=== PATIENT | female | born 1970 | race Caucasian/White ===

== ENCOUNTER → 2016-12-14 | Outpatient (CLI) | payer BC ==
--- NOTE | 2016-12-17 11:48 | MM ---
Reason for exam: screening (asymptomatic). Last mammogram was performed 1 year and 1 month ago. History: Family history of breast cancer in aunt at age 55. Took hormonal contraceptives for 6 years. Physical Findings: A clinical breast exam by your physician is recommended on an annual basis and results should be correlated with mammographic findings. MG Screening Mammo w CAD Bilateral CC and MLO view(s) were taken. Prior study comparison: November 03, 2015, bilateral MG 3d screening mammo w/cad. October 25, 2014, bilateral MG screening mammo w CAD. The breast tissue is heterogeneously dense. This may lower the sensitivity of mammography. There is no discrete abnormality. No significant changes when compared with prior studies. ASSESSMENT: Negative, BI-RAD 1 RECOMMENDATION: Routine screening mammogram of both breasts in 1 year.
== END | disposition home or self-care (01) ==
LOC: RADMAMWWP 07:48
PROVIDERS: ATTEND Obstetrics & Gynecology
DX: Z12.31 Encounter for screening mammogram for malignant neoplasm of breast (principal); Z80.3 Family history of malignant neoplasm of breast

== ENCOUNTER → 2018-01-10 | Outpatient (CLI) | payer BC ==
--- NOTE | 2018-01-13 09:38 | MM ---
Reason for exam: screening (asymptomatic). Last mammogram was performed 1 year and 1 month ago. History: Family history of breast cancer in aunt at age 55. Took hormonal contraceptives for 6 years. Physical Findings: A clinical breast exam by your physician is recommended on an annual basis and results should be correlated with mammographic findings. MG Screening Mammo w CAD Bilateral CC and MLO view(s) were taken. Prior study comparison: December 14, 2016, bilateral MG screening mammo w CAD. November 03, 2015, bilateral MG 3d screening mammo w/cad. The breast tissue is heterogeneously dense. This may lower the sensitivity of mammography. There is no discrete abnormality. No significant changes when compared with prior studies. ASSESSMENT: Negative, BI-RAD 1 RECOMMENDATION: Routine screening mammogram of both breasts in 1 year.
== END ==
LOC: RADMAMWWP 07:49
PROVIDERS: ATTEND Obstetrics & Gynecology
DX: Z12.31 Encounter for screening mammogram for malignant neoplasm of breast (principal); Z80.3 Family history of malignant neoplasm of breast
CPT/HCPCS: 77067

== ENCOUNTER → 2018-02-22 | Outpatient (CLI) | payer BC ==
[2018-02-22 10:45] LABS: Basophils # (A) 0.1 k/uL (0-0.2); Basophils % (A) 1 %; Eosinophils # (A) 0.1 k/uL (0-0.7); Eosinophils % (A) 2 %; HCT 43.7 % (34.0-46.0); HGB 14.5 gm/dL (11.4-16.0); Lymphocytes # (A) 1.8 k/uL (1.0-4.8); Lymphocytes % (A) 27 %; MCH 32.8 pg (25.0-35.0); MCHC 33.1 g/dL (31.0-37.0); Mean Platelet Volume 6.4; Monocytes # (A) 0.5 k/uL (0-1.0); Monocytes % (A) 7 %; Neutrophils # (A) 4.2 k/uL (1.3-7.7); Neutrophils % (A) 63 %; Platelet Count 317 k/uL (150-450); RBC 4.42 m/uL (3.80-5.40); RDW 12.4 % (11.5-15.5); WBC 6.8 k/uL (3.8-10.6)
[2018-02-22 11:04] LABS: Anion Gap 8 mmol/L; Blood Urea Nitrogen 22 mg/dL (7-17); Carbon Dioxide 28 mmol/L (22-30); Chloride 104 mmol/L (98-107); Glucose 82 mg/dL (74-99); Potassium 5.2 mmol/L (3.5-5.1); Sodium 140 mmol/L (137-145)
== END | disposition home or self-care (01) ==
LOC: LABPAT 10:21
PROVIDERS: ATTEND Obstetrics & Gynecology
DX: Z01.812 Encounter for preprocedural laboratory examination (principal); N92.0 Excessive and frequent menstruation with regular cycle; N94.6 Dysmenorrhea, unspecified
CPT/HCPCS: 36415; 80051; 82565; 82947; 84520; 85025; 86850; 86900; 86901; 87086

== ENCOUNTER 2018-03-03 05:42 | Day surgery (SDC) | payer BC ==
[2018-02-26 11:27] VITALS: BMI 22.6
--- NOTE | 2018-02-27 15:39 | HP ---
HISTORY AND PHYSICAL This is a 47-year-old white female, 3, para 2-0-1-2, who presents with menses occurring every 21 days. Her partner has had a vasectomy. She has been counseled regarding different options. She has used cyclic progesterone in the past in an attempt to regulate the menses, but had severe gastrointestinal upset and is declining option for cyclic hormonal therapy. After a thorough discussion, patient would like to proceed with vaginal hysterectomy. Consideration has been given to robotic assistance, but in my judgment with 2 vaginal deliveries in the past and reasonable body habitus, vaginal hysterectomy is a good approach. Second opinion has been offered and declined. PAST MEDICAL HISTORY: Significant for depression, septate uterus, and duodenal ulcers. PAST SURGICAL HISTORY: Carpal tunnel release times x2, cholecystectomy, colposcopy, NovaSure endometrial ablation in 2007, tonsillectomy. CURRENT MEDICATIONS: 1. Loratadine once daily. 2. Micronized progesterone tablets, cyclically. 3. Singulair once daily. 4. Wellbutrin XL once daily. ALLERGIES: Include CODEINE to which she reports vomiting. FAMILY HISTORY: Significant for brain cancer, breast cancer, diabetes, diverticulitis, heart disease, macular degeneration, stomach cancer and a grandmother with ovarian cancer. Obstetric history is significant for normal spontaneous vaginal deliveries x2 in 2004 and 2007. SOCIAL HISTORY: Patient drinks social alcohol, she is a former tobacco smoker. She denies illicit drug use. PHYSICAL EXAM: This is a pleasant female, 5 foot 4-1/2 inches, 145 pounds, BMI 24, blood pressure 110/76. HEENT exam reveals no thyromegaly. Good range of motion. No unusual adenopathy. CHEST: Clear to auscultation in all ahn anteriorly and posteriorly. CARDIAC EXAM: Reveals regular rate and rhythm with no murmur, click, or rub. Breasts are bilaterally symmetric to inspection with no skin dimpling, nipple discharge, axillary adenopathy or discernible lesions or masses. ABDOMEN: Soft and nontender, no organosplenomegaly, active bowel sounds are noted. On external genitalia exam, the anatomy is normal for age with no discharge or inflammatory lesions noted. Bladder is nontender. Cervix is healthy and multiparous in appearance. Uterus is small and mobile, midline, with a small amount of uterine prolapse with Valsalva. Adnexa are negative bilaterally, no adnexal masses or enlargement. Rectal exam reveals good sphincter tone, no hemorrhoids, FIT negative stool. Skin is clear to inspection with no obvious lesions or rashes. IMPRESSION: Continued dysmenorrhea and hypermenorrhea, status post ablation in the past. Patient declining option for repeat cyclic hormones and instead choosing vaginal hysterectomy. PLAN: I believe patient is well aware of the risks, benefits, and alternatives of this procedure. We have discussed the risk of aspiration, nerve damage, or even . We have discussed the risk of damage or perforation to the bladder, bowels, ureters, blood vessels, or indeed any abdominal or pelvic organs. Second opinion has been offered and declined. I believe the patient understands our discussion with no reservation or question. The ACOG pamphlet on this procedure have been given to the patient for her review. MMODL / IJN: [id number] /
[~2018-03-03 05:42] MED LIST: ceFAZolin IN SWFI 2 GM/20 ML SYRINGE IVP ONE
[2018-03-03] MEDS ORDERED: DEXAMETHASONE SOD PHOSPHATE 10 MG/ML 1 ML VIAL IV ONE (05:54)
[2018-03-03] MEDS ORDERED: MIDAZOLAM (PF) 2 MG/2 ML VIAL IV PRN (05:54)
[2018-03-03] MEDS ORDERED: SCOPOLAMINE 1.5MG/72HR PATCH TRANSDERM ONE (05:54)
[2018-03-03] MEDS ORDERED: fentaNYL (PF) 50 MCG/ML 2 ML AMP IV PRN (05:54)
[2018-03-03] MEDS ORDERED: ONDANSETRON 4 MG/2 ML VIAL IVP ONE (05:54)
[2018-03-03] MEDS: LACTATED RINGERS 1,000 ML IV SCH ×3 (06:25→23:54)
[2018-03-03] MEDS ORDERED: LIDOCAINE 1% 20 ML VIAL (10MG/ML) FOR IV START INTRADERMA ONE (06:26)
[2018-03-03] MEDS ORDERED: MIDAZOLAM 2 MG/2 ML VIAL ONE (07:25)
[2018-03-03] MEDS ORDERED: SUCCINYLCHOLINE CHLORIDE 100 MG/5 ML SYR IV ONE (07:25)
[2018-03-03] MEDS ORDERED: ACETAMINOPHEN IV (For NPO) 1,000 MG/100 ML VIAL ONE (07:25)
[2018-03-03] MEDS ORDERED: PROPOFOL 10 MG/ML 20 ML VIAL IV ONE (07:25)
[2018-03-03] MEDS ORDERED: fentaNYL (PF) 50 MCG/ML 2 ML AMP ONE (07:25)
[2018-03-03] MEDS ORDERED: NEOSTIGMINE 1 MG/ML 10 ML VIAL ONE (07:25)
[2018-03-03] MEDS ORDERED: GLYCOPYRROLATE 0.2 MG/ML 2 ML VIAL ONE (07:25)
[2018-03-03] MEDS ORDERED: ROCURONIUM BROMIDE 10 MG/ML 10 ML VIAL IV ONE (07:25)
[2018-03-03] MEDS ORDERED: LIDOCAINE 1% INJ 10MG/ML (20 ML MDV) ONE (07:25)
[2018-03-03] MEDS ORDERED: VASOPRESSIN 20 UNIT/ML 1 ML VIAL SQ ONE (07:49)
[2018-03-03] MEDS ORDERED: BACITRACIN 500 UNIT/GM OINT 28.4 GM TUBE TOPICAL ONE (07:58)
[2018-03-03] MEDS ORDERED: LACTATED RINGERS 1,000 ML IV ONE (08:23)
[2018-03-03] MEDS ORDERED: IBUPROFEN 600 MG TAB PO PRN (08:36)
[2018-03-03] MEDS ORDERED: METOCLOPRAMIDE 5 MG/ML 2 ML VIAL IVP PRN (08:36)
[2018-03-03] MEDS ORDERED: diphenhydrAMINE 50 MG/ML 1 ML VIAL IVP PRN (08:36)
[2018-03-03] MEDS ORDERED: SIMETHICONE 80 MG CHEWABLE PO PRN (08:36)
[2018-03-03] MEDS ORDERED: KETOROLAC 30 MG/ML 1 ML VIAL IVP PRN (08:36)
[2018-03-03] MEDS ORDERED: ZOLPIDEM 5 MG TAB PO PRN (08:36)
[2018-03-03] MEDS ORDERED: ONDANSETRON 4 MG/2 ML VIAL IVP PRN (08:36)
--- NOTE | 2018-03-03 08:36 | P.OP ---
Date of Procedure: 03/03/18 Preoperative Diagnosis: Dysmenorrhea, hypermenorrhea Postoperative Diagnosis: Same, normal-appearing ovaries bilaterally Procedure(s) Performed: Vaginal hysterectomy Anesthesia: spinal Contact Centre Supervisor #1: Elaine Raymond Contact Centre Supervisor #2: Shonna Kerr Estimated Blood Loss (ml): 50 IV fluids (ml): 600 Urine output (ml): 100 Pathology: other (Cervix and uterus) Condition: stable Disposition: PACU Operative Findings: Normal-appearing ovaries bilaterally Description of Procedure: Patient is brought to the operating suite where a general anesthetic is administered after the placement of a spinal with Duramorph. Antibiotics are given. The appropriate timeout is performed to assure proper patient and procedural identification. She's placed in the dorsal lithotomy position. The cervix, vagina, perineal bodies are all prepped and draped in the usual sterile fashion. The bladder is drained for approximately 100 mL of clear yellow urine. The weighted speculum was placed into the vagina and the anterior lip of the cervix is grasped with a double-tooth tenaculum. The cervix is injected circumferentially with a dilute Pitressin solution, 20 mL total. A scalpel is used to incise the mucosa circumferentially with a V positioning at 6:00. A sponge rolled finger is used to sweep the overlying mucosa from the underlying fascial plane. Peritoneum is entered at 6:00 and suture tied with 2-0 Vicryl suture. The large billed speculum is now placed into the peritoneal cavity. At all times care is taken to keep the mucosa swept well from the operative field to avoid any bladder and/or ureteral injury. Uterosacral cardinal ligaments are identified, clamped cut and held with a hemostat. Uterine vasculature is identified, clamped cut and suture ligated. 2 additional pedicles are taken superior to the vessels. Peritoneum is entered at 6:00 with Metzenbaum scissors. The uterus is "walked out" posteriorly. Ramirez clamps are used across the final pedicles and the specimen is removed and sent to pathology for evaluation. 0 Vicryl sutures used to tie the pedicles, flashed, and retied for excellent hemostasis. A sponge stick is then used and bilateral ovaries are in inspected and noted to be normal. They are therefore left in situ per patient's wishes. The speculum is changed to the shallow billed speculum and the peritoneum is closed in a pursestring fashion. All pedicles are clean and dry. The previously placed 0 Vicryl suture on the uterosacral ligaments are brought across to incorporate the opposite ligament and mucosa. Vaginal cuff is closed with 3 additional [id number]-je-xebxa sutures of 0 Vicryl. Roa catheter is placed and urine is clear. The vagina is packed with one-inch iodophor gauze. All sponge needle and enhancement counts are correct at the end of the procedure. Roa is noted to be draining clear urine. Total estimated blood loss 50 mL, fluid replacement 600cc. patient is brought back to the recovery room in stable condition with a blood pressure of 94/49, pulse 55, 99% O2 saturation.
[2018-03-03] MEDS ORDERED: MORPHINE SULFATE 2 MG/ML SYRINGE IVP PRN (09:11)
[2018-03-03] MEDS ORDERED: NALOXONE 0.4 MG/ML 1 ML VIAL IV PRN (09:11)
[2018-03-03] MEDS ORDERED: NALBUPHINE 10 MG/ML VIAL (10ML MDV) IV PRN (09:11)
[2018-03-03] MEDS ORDERED: diphenhydrAMINE 50 MG/ML 1 ML VIAL IVP ONE (09:15)
[2018-03-04 07:47] VITALS: BP 94/61; PULSE 56; TEMP 99.2
--- NOTE | 2018-03-04 07:47 | P.DS ---
Providers Date of admission: 03/03/18 Expected date of discharge: 03/04/18 Attending physician: Elaine Raymond Primary care physician: [facility] Course: This is a 47-year-old white female who presented with continued dysmenorrhea and hypermenorrhea, despite NovaSure endometrial ablation done several years ago. After thorough consultation and consideration of options, she elected to proceed with vaginal hysterectomy. She was a low risk patient for surgery, please see my history and physical for details. Patient underwent vaginal hysterectomy under my care yesterday. She did well intraoperatively, ovaries appeared normal and were left in situ per her wishes. Vagina was packed with iodoform gauze, Roa catheter placed. She did receive a spinal with Duramorph for analgesia. Please see my dictated operative note for details. This morning the patient appears well. Vaginal packing and Roa catheter had been removed. She is voiding, ambulating, and passing flatus without difficulty. She had mild nausea through the evening, results this morning. She has good pain control. There is no vaginal bleeding. No CVA tenderness. Patient is requesting discharge home and is considered to be in very good condition for discharge. She will follow-up with me in the office in 2 weeks. I have reminded her no intercourse, tampons or douching. She will use [id number] Advil or Aleve , or Motrin products as needed for pain. I reminded her no heavy lifting, no working out at the gym, she may climb stairs and do minimal activities at home. She will call with any pain not alleviated by [id number] products, with any vaginal bleeding, with any difficulties with bladder or bowel, or indeed with any concerns. Patient Condition at Discharge: Good Plan - Discharge Summary Discharge Rx Participant: Yes New Discharge Prescriptions: No Action Loratadine-Pseudoeph 10-240 mg [Claritin-D 24 Hr] 1 each PO DAILY Wellbutrin (Unknown Dose) 1 tab PO QAM Discharge Medication List Loratadine-Pseudoeph 10-240 mg [Claritin-D 24 Hr] 1 each PO DAILY 02/26/18 [ History] Wellbutrin (Unknown Dose) 1 tab PO QAM 02/26/18 [History] Follow up Appointment(s)/Referral(s): Elaine Raymond MD [STAFF PHYSICIAN] - 2 Weeks Discharge Disposition: HOME SELF-CARE
[2018-03-04 09:53] VITALS: RESP 18
== END 2018-03-04 11:55 | disposition home or self-care (01) ==
LOC: OR 05:42 → 4FBP 08:44 → OR 03-04 11:55
PROVIDERS: ATTEND Obstetrics & Gynecology
DX: D25.2 Subserosal leiomyoma of uterus (principal); N80.0 Endometriosis of uterus; N94.6 Dysmenorrhea, unspecified; F32.9 Major depressive disorder, single episode, unspecified; Z79.899 Other long term (current) drug therapy; Z88.5 Allergy status to narcotic agent; Z87.891 Personal history of nicotine dependence; Z90.49 Acquired absence of other specified parts of digestive tract; Z83.3 Family history of diabetes mellitus; Z79.890 Hormone replacement therapy
CPT/HCPCS: 81025; 84132; 88307; 58260; J2250 ×2; J1200; J1100; J2710; J2405; J2001; J3010; J1885; J0131; J0330; J2704; J0690; 86850; 86900; 86901

== ENCOUNTER 2018-03-06 16:59 | Inpatient (IN) | payer BC ==
[2018-03-06] MEDS ORDERED: MORPHINE SULFATE 4 MG/ML SYRINGE IV STA (17:26)
[2018-03-06] MEDS ORDERED: FAMOTIDINE 20 MG/2 ML VIAL IV STA (17:26)
[2018-03-06] MEDS ORDERED: SODIUM CHLORIDE 0.9% 1,000 ML IV STA (17:26)
[2018-03-06] MEDS ORDERED: METOCLOPRAMIDE 5 MG/ML 2 ML VIAL IVP STA (17:26)
--- NOTE | 2018-03-06 17:31 | ED ---
General Adult HPI - General Chief complaint: Nausea/Vomiting/Diarrhea Stated complaint: post op pain, nausea Time Seen by Provider: 03/06/18 17:19 Source: patient, family, RN notes reviewed Mode of arrival: ambulatory Limitations: no limitations - History of Present Illness Initial comments: Patient is a pleasant 47-year-old female presenting to the emergency department with nausea and vomiting. Patient is approximately 3 days post vaginal hysterectomy by Dr. Raymond. Patient has not been passing gas. No bowel movement. Patient has been belching. Patient vomited approximately 4 times yesterday and twice today. Patient has nausea. No solid food intake. Patient did tolerate some liquids today. No fevers. No diarrhea. - Related Data Home Medications Medication Instructions Recorded Confirmed Loratadine-Pseudoeph 10-240 mg 1 tab PO DAILY 02/26/18 03/06/18 [Claritin-D 24 Hr] Cholecalciferol [Vitamin D3] 1,000 unit PO DAILY 03/06/18 03/06/18 Multivitamin,Therapeutic [Thera] 1 tab PO DAILY 03/06/18 03/06/18 buPROPion HCL [Wellbutrin XL] 300 mg PO DAILY 03/06/18 03/06/18 Allergies Allergy/AdvReac Type Severity Reaction Status Date / Time codeine Allergy Nausea & Verified 03/06/18 17:43 Vomiting Review of Systems ROS Statement: Those systems with pertinent positive or pertinent negative responses have been documented in the HPI. ROS Other: All systems not noted in ROS Statement are negative. Constitutional: Denies: fever Eyes: Denies: eye pain ENT: Denies: ear pain Respiratory: Denies: cough Cardiovascular: Denies: chest pain Endocrine: Denies: fatigue Gastrointestinal: Reports: abdominal pain, nausea, vomiting, constipation. Denies: diarrhea Genitourinary: Denies: dysuria Musculoskeletal: Denies: back pain Skin: Denies: rash (Follow-up all) Neurological: Denies: headache, weakness Past Medical History History of Any Multi-Drug Resistant Organisms: None Reported Past Surgical History: Cholecystectomy, Hysterectomy, Orthopedic Surgery, Tonsillectomy Past Psychological History: No Psychological Hx Reported Smoking Status: Never smoker Past Alcohol Use History: Rare Past Drug Use History: None Reported - Past Family History Mother Family Medical History: COPD, Respiratory Disorder Additional Family Medical History / Comment(s): emphysema Father Family Medical History: Myocardial Infarction ([place]) Additional Family Medical History / Comment(s): stroke General Exam Limitations: no limitations General appearance: alert, in no apparent distress Head exam: Present: atraumatic ( other concerns. He is here the day before) Eye exam: Present: normal appearance, PERRL ENT exam: Present: normal oropharynx Neck exam: Present: normal inspection Respiratory exam: Present: normal lung sounds bilaterally Cardiovascular Exam: Present: regular rate, normal rhythm Expanded Peripheral pulses: 2+: Dorsalis Pedis (R), Dorsalis Pedis (L) GI/Abdominal exam: Present: soft, tenderness (Diffuse tenderness), hypoactive bowel sounds. Absent: distended, guarding, rebound, rigid, pulsatile mass Extremities exam: Present: normal inspection. Absent: pedal edema, calf tenderness Neurological exam: Present: alert Psychiatric exam: Present: normal affect, normal mood Skin exam: Present: normal color Course Vital Signs 03/06/18 17:00 Temperature 98.6 F Pulse Rate 71 Respiratory 18 Rate Blood Pressure 114/76 O2 Sat by Pulse 100 Oximetry Medical Decision Making - Medical Decision Making Patient reevaluated and resting comfortably in bed. Patient and family updated on results and plan. Case was discussed in detail with Dr. Huitron, covering for Dr. Raymond, who will admit. She does not need consults at this time. - Lab Data Result diagrams: 03/06/18 17:43 03/06/18 17:43 Lab Results 03/06/18 03/06/18 03/06/18 Range/Units 17:43 17:43 17:43 WBC 15.9 H (3.8-10.6) k/uL RBC 4.12 (3.80-5.40) m/uL Hgb 13.7 (11.4-16.0) gm/dL Hct 39.9 (34.0-46.0) % MCV 96.8 (80.0-100.0) fL MCH 33.3 (25.0-35.0) pg MCHC 34.4 (31.0-37.0) g/dL RDW 12.2 (11.5-15.5) % Plt Count 347 (150-450) k/uL Neutrophils % 86 % Lymphocytes % 7 % Monocytes % 5 % Eosinophils % 1 % Basophils % 0 % Neutrophils # 13.7 H (1.3-7.7) k/uL Lymphocytes # 1.1 (1.0-4.8) k/uL Monocytes # 0.8 (0-1.0) k/uL Eosinophils # 0.2 (0-0.7) k/uL Basophils # 0.0 (0-0.2) k/uL PT 10.8 (9.0-12.0) sec INR 1.0 (<1.2) APTT 22.4 (22.0-30.0) sec Sodium 138 (137-145) mmol/L Potassium 3.4 L (3.5-5.1) mmol/L Chloride 98 (98-107) mmol/L Carbon Dioxide 28 (22-30) mmol/L Anion Gap 12 mmol/L BUN 17 (7-17) mg/dL Creatinine 0.62 (0.52-1.04) mg/dL Est GFR (CKD-EPI)AfAm >90 (>60 ml/min/1.73 sqM) Est GFR (CKD-EPI)NonAf >90 (>60 ml/min/1.73 sqM) Glucose 100 H (74-99) mg/dL Calcium 9.3 (8.4-10.2) mg/dL Total Bilirubin 1.3 (0.2-1.3) mg/dL AST 28 (14-36) U/L ALT 21 (9-52) U/L Alkaline Phosphatase 43 (38-126) U/L Total Protein 6.8 (6.3-8.2) g/dL Albumin 4.0 (3.5-5.0) g/dL Amylase 42 (30-110) U/L Lipase 27 (23-300) U/L - Radiology Data Radiology results: report reviewed (Computed tomography scan of the abdomen and pelvis does show ileus. Cannot rule out obstruction.) Disposition Clinical Impression: Ileus Disposition: ADMITTED IP TO THIS HOSP Is patient prescribed a controlled substance at d/c from ED?: No Referrals: Tavo Singh MD [Primary Care Provider] - 1-2 days Decision Time: 19:30
[2018-03-06 18:24] LABS: Basophils % (A) 0 %; Eosinophils # (A) 0.2 k/uL (0-0.7); Eosinophils % (A) 1 %; HCT 39.9 % (34.0-46.0); HGB 13.7 gm/dL (11.4-16.0); Lymphocytes # (A) 1.1 k/uL (1.0-4.8); Lymphocytes % (A) 7 %; MCH 33.3 pg (25.0-35.0); MCHC 34.4 g/dL (31.0-37.0); MCV 96.8 fL (80.0-100.0); Mean Platelet Volume 6.9; Monocytes # (A) 0.8 k/uL (0-1.0); Monocytes % (A) 5 %; Neutrophils # (A) 13.7 k/uL (1.3-7.7); Neutrophils % (A) 86 %; Platelet Count 347 k/uL (150-450); RBC 4.12 m/uL (3.80-5.40); RDW 12.2 % (11.5-15.5); WBC 15.9 k/uL (3.8-10.6)
[2018-03-06 18:31] LABS: ALT 21 U/L (9-52); AST 28 U/L (14-36); Alkaline Phosphatase 43 U/L (38-126); Amylase 42 U/L (30-110); Anion Gap 12 mmol/L; Blood Urea Nitrogen 17 mg/dL (7-17); Calcium 9.3 mg/dL (8.4-10.2); Carbon Dioxide 28 mmol/L (22-30); Chloride 98 mmol/L (98-107); Glucose 100 mg/dL (74-99); Lipase 27 U/L (23-300); Potassium 3.4 mmol/L (3.5-5.1); Sodium 138 mmol/L (137-145); Total Bilirubin 1.3 mg/dL (0.2-1.3); Total Protein 6.8 g/dL (6.3-8.2)
--- NOTE | 2018-03-06 18:55 | CT ---
EXAMINATION TYPE: CT abdomen pelvis w con DATE OF EXAM: 03/06/2018 COMPARISON: None HISTORY: Pt had hysterectomy Saturday. Post op pain, hysterectomy. CT DLP: 705.3 mGycm Automated exposure control for dose reduction was used. TECHNIQUE: Helical acquisition of images was performed from the lung bases through the pelvis. CONTRAST: Performed without Oral Contrast and with IV Contrast, patient injected with 100 mL of Isovue 300. FINDINGS: Lung bases are clear of infiltrate. There is no pleural effusion. Heart size is normal. There is no p ericardial effusion. There are clips from cholecystectomy. Bile ducts are not dilated. There is a dil ated fluid-filled stomach. Spleen appears normal. There is no evidence of pancreatic mass. There is extensive dilation of the small bowel with numerous fluid levels. Small bowel is dilated up to 4 cm. The terminal ileum show some wall thickening but no dilation. There is no retroperitoneal adenopathy. Kidneys show satisfactory contrast opacification. There is no hydronephrosis. Ureters are not dilated. There is no evidence of inguinal hernia. Bladder distends s moothly. There is some free fluid in the pelvis. There is a first-degree L5 spondylolisthesis without spondylolysis. There is no compression fracture. Bony pelvis is intact. IMPRESSION: DILATED SMALL BOWEL WITH FLUID LEVELS PROBABLY DUE TO SEVERE ILEUS. MECHANICAL OBSTRUCTION NOT ENTIRE LY EXCLUDED. NO FREE AIR. MILD FREE FLUID IN THE PELVIS. THERE IS WALL THICKENING OF THE TERMINAL ILE UM THAT IS NONSPECIFIC. SMALL BOWEL OBSTRUCTION SECONDARY TO INFLAMMATORY PROCESS OF THE TERMINAL ILE UM IS POSSIBLE.
[2018-03-06 18:57] LABS: Partial Thromboplastin Time 22.4 sec (22.0-30.0); Prothrombin Time 10.8 sec (9.0-12.0)
[2018-03-06] MEDS ORDERED: NALOXONE 0.4 MG/ML 1 ML VIAL IV PRN (19:32)
[2018-03-06] MEDS: SODIUM CHLORIDE 0.9% 1,000 ML IV SCH (19:47)
[2018-03-06] MEDS: MORPHINE SULFATE 4 MG/ML SYRINGE IV PRN (21:27)
[2018-03-07] MEDS: SODIUM CHLORIDE 0.9% 1,000 ML IV SCH ×3 (03:05→19:52)
[2018-03-07 04:40] LABS: Appearance,Urine Clear (Clear); Bilirubin,Urine Negative (Negative); Blood,Urine Small (Negative); Color,Urine Yellow; Glucose,Urine (UA) Negative (Negative); Ketones,Urine 2+ (Negative); Leukocyte Esterase,Urine Negative (Negative); Mucus,Urine Rare /hpf; Nitrite,Urine Negative (Negative); PH, Urine 6.5 (5.0-8.0); Protein,Urine Trace (Negative); RBC,Urine 4 /hpf (0-5); Squamous Epithelial Cell,Urine 9 /hpf (0-4); WBC,Urine 4 /hpf (0-5)
[2018-03-07 04:45] LABS: Specific Gravity,Urine >1.050 (1.001-1.035)
[2018-03-07] MEDS: PANTOPRAZOLE 40 MG/10 ML VIAL IV SCH (07:40)
--- NOTE | 2018-03-07 09:13 | P.HPOB ---
History of Present Illness H&P Date: 03/07/18 Chief Complaint: Nausea vomiting postop day 4 status post vaginal hysterectomy, ileus This is a very pleasant 47-year-old female that is 4 days status post vaginal hysterectomy by Dr. Raymond. Patient noted increased nausea and vomiting and presented to the emergency department last evening. CAT scan was done and ileus was diagnosed via CAT scan. Patient was doing well in the emergency department therefore the decision was made to place patient in observation overnight for continued monitoring. She denies any nausea or vomiting since being in the emergency department last night. No she states she does struggle with constipation and her last bowel movement was prior to her hysterectomy. No flatus this morning. She denies fever, chills, urinary complaints. Review of Systems Constitutional: Reports fatigue, Denies chills, Denies fever Ears, nose, mouth and throat: Denies headache Respiratory: Denies dyspnea Gastrointestinal: Reports belching, Reports bloating, Reports constipation, Denies diarrhea, Denies nausea, Denies vomiting Genitourinary: Denies dysuria, Denies hematuria Past Medical History Past Medical History: No Reported History Additional Past Medical History / Comment(s): Constipation History of Any Multi-Drug Resistant Organisms: None Reported Past Surgical History: Cholecystectomy, Hysterectomy, Orthopedic Surgery, Tonsillectomy Additional Past Surgical History / Comment(s): Carpal tunel bilateral Past Anesthesia/Blood Transfusion Reactions: Postoperative Nausea & Vomiting ( PONV) Past Psychological History: No Psychological Hx Reported Smoking Status: Never smoker Past Alcohol Use History: Rare Past Drug Use History: None Reported Additional Drug Use History / Comment(s): Social alcohol use - Past Family History Mother Family Medical History: COPD, Respiratory Disorder Additional Family Medical History / Comment(s): emphysema Father Family Medical History: Diabetes Mellitus, Myocardial Infarction ([place]) Additional Family Medical History / Comment(s): stroke Medications and Allergies Home Medications Medication Instructions Recorded Confirmed Type Loratadine-Pseudoeph 10-240 mg 1 tab PO DAILY 02/26/18 03/06/18 History [Claritin-D 24 Hr] Cholecalciferol [Vitamin D3] 1,000 unit PO DAILY 03/06/18 03/06/18 History Multivitamin,Therapeutic [Thera] 1 tab PO DAILY 03/06/18 03/06/18 History buPROPion HCL [Wellbutrin XL] 300 mg PO DAILY 03/06/18 03/06/18 History Allergies Allergy/AdvReac Type Severity Reaction Status Date / Time codeine Allergy Nausea & Verified 03/06/18 17:43 Vomiting Exam Osteopathic Statement: *. No significant issues noted on an osteopathic structural exam other than those noted in the History and Physical/Consult. Vital Signs Temp Pulse Pulse Resp BP BP Pulse Ox 03/07/18 07:46 98.2 F 65 16 123/76 96 03/06/18 23:56 98.5 F 67 16 124/75 97 03/06/18 21:03 98.7 F 57 L 16 136/80 99 03/06/18 19:48 70 16 124/84 99 03/06/18 17:00 98.6 F 71 18 114/76 100 Intake and Output 03/06/18 03/07/18 03/07/18 22:59 06:59 14:59 Intake Total 1080 Balance 1080 Intake: Intake, IV Titration 1080 Amount Sodium Chloride 0.9% 1, 1080 000 ml @ 120 mls/hr IV . Q8H20M [facility] Rx#:[id number] Other: # Voids 1 1 Weight 63.503 kg Cardiac physical exam was performed this morning. General this is a well- nourished well-developed female in no acute distress. She portrays nonlabored bleeding and lungs are clear to auscultation bilaterally, heart is regular rate and rhythm, abdomen is slightly distended but nontender. Extremities are noted to have no clubbing cyanosis or edema. Results Result Diagrams: 03/06/18 17:43 03/06/18 17:43 Abnormal Lab Results - Last 24 Hours (Table) 03/06/18 03/06/18 03/06/18 Range/Units 17:43 17:43 23:50 WBC 15.9 H (3.8-10.6) k/uL Neutrophils # 13.7 H (1.3-7.7) k/uL Potassium 3.4 L (3.5-5.1) mmol/L Glucose 100 H (74-99) mg/dL Ur Specific [place] >1.050 H (1.001-1.035) Urine Protein Trace H (Negative) Urine Ketones 2+ H (Negative) Urine Blood Small H (Negative) Ur Squamous Epith Cells 9 H (0-4) /hpf Urine Mucus Rare H (None) /hpf Assessment and Plan (1) S/P vaginal hysterectomy Current Visit: Yes Status: Acute Code(s): Z90.710 - ACQUIRED ABSENCE OF BOTH CERVIX AND UTERUS SNOMED Code(s): 659918290 (2) Nausea & vomiting Current Visit: Yes Status: Acute Code(s): R11.2 - NAUSEA WITH VOMITING, UNSPECIFIED SNOMED Code(s): 00440511 (3) Ileus Current Visit: Yes Status: Acute Code(s): K56.7 - ILEUS, UNSPECIFIED SNOMED Code(s): 029379354 Plan: Given she's had no nausea or vomiting since yesterday we will advance her diet to clear liquids and monitor. Will recheck labs this morning CBC/CMP for electrolyte abnormalities. In general this patient looks well and we will encourage ambulation this morning.
[2018-03-07] MEDS ORDERED: BISACODYL 10 MG SUPP RECTAL STA (09:17)
[2018-03-07 11:55] LABS: HCT 40.3 % (34.0-46.0); MCHC 32.2 g/dL (31.0-37.0); MCV 99.5 fL (80.0-100.0); Mean Platelet Volume 6.2; Platelet Count 384 k/uL (150-450); RBC 4.05 m/uL (3.80-5.40); RDW 12.2 % (11.5-15.5); WBC 13.8 k/uL (3.8-10.6)
[2018-03-07 12:14] LABS: ALT 27 U/L (9-52); AST 20 U/L (14-36); Albumin 3.7 g/dL (3.5-5.0); Alkaline Phosphatase 42 U/L (38-126); Anion Gap 9 mmol/L; Blood Urea Nitrogen 17 mg/dL (7-17); Calcium 8.7 mg/dL (8.4-10.2); Carbon Dioxide 26 mmol/L (22-30); Chloride 103 mmol/L (98-107); Glucose 90 mg/dL (74-99); Potassium 3.7 mmol/L (3.5-5.1); Sodium 138 mmol/L (137-145); Total Bilirubin 1.1 mg/dL (0.2-1.3); Total Protein 6.4 g/dL (6.3-8.2)
[2018-03-07] MEDS: ONDANSETRON 4 MG/2 ML VIAL IVP PRN ×2 (13:50→22:36)
[2018-03-07] MEDS: MORPHINE SULFATE 4 MG/ML SYRINGE IV PRN ×2 (16:11→22:36)
[2018-03-08] MEDS: SODIUM CHLORIDE 0.9% 1,000 ML IV SCH ×2 (05:19→17:18)
[2018-03-08] MEDS: PANTOPRAZOLE 40 MG/10 ML VIAL IV SCH (08:43)
[2018-03-08] MEDS ORDERED: BISACODYL 10 MG SUPP RECTAL STA (11:18)
[2018-03-08] MEDS: METOCLOPRAMIDE 5 MG/ML 2 ML VIAL IVP PRN ×2 (11:21→17:18)
--- NOTE | 2018-03-08 11:24 | P.PN ---
Subjective Principal diagnosis: Status post vaginal hysterectomy, ileus The patient reports that she has no postsurgical pain of any kind but does continue to have some irregular back pain. She denies any flatus at this time and has been ambulating very regularly. She does not feel hungry at the moment. There is no further nausea and has been no vomiting since the patient was laced with a nothing by mouth diet yesterday. Objective - Vital Signs Vital signs: Vital Signs Temp 97.9 F 03/08/18 07:00 Pulse 69 03/08/18 07:00 Resp 16 03/08/18 07:00 BP 121/74 03/08/18 07:00 Pulse Ox 98 03/08/18 07:00 Intake & Output 03/07/18 03/08/18 03/08/18 18:59 06:59 18:59 Intake Total 960 1200 Balance 960 1200 Intake: Intake, IV Titration 960 1200 Amount Sodium Chloride 0.9% 1, 960 1200 000 ml @ 120 mls/hr IV . Q8H20M [facility] Rx#:[id number] Other: Voiding Method Toilet # Voids 3 3 - Exam In general, this is a well-developed, well-nourished white female in no acute distress. Her heart has a regular rhythm and rate without murmur. Her lungs are clear to auscultation bilaterally in all ahn. Her abdomen is slightly distended, has minimal, hypoactive bowel sounds but bowel sounds do appear to be present. Her abdomen is soft, nontender, and without masses. Her 70s without any cyanosis, clubbing, or edema and are nontender to palpation bilaterally. Pelvic examination is deferred. - Labs CBC & Chem 7: 03/07/18 10:54 03/07/18 10:54 Labs: Abnormal Lab Results - Last 24 Hours (Table) 03/07/18 Range/Units 10:54 WBC 13.8 H (3.8-10.6) k/uL Assessment and Plan (1) Ileus Current Visit: Yes Status: Acute Code(s): K56.7 - ILEUS, UNSPECIFIED SNOMED Code(s): 046143841 (2) S/P vaginal hysterectomy Current Visit: Yes Status: Acute Code(s): Z90.710 - ACQUIRED ABSENCE OF BOTH CERVIX AND UTERUS SNOMED Code(s): 359824890 Plan: I have discussed with the patient and her that bowel rest is the current best choice of action. I have strongly encouraged her to continue ambulating without significant and regular basis. I have discontinued morphine as this is counterproductive to her bowel activity. As an alternative, I will have ordered Toradol for when necessary use and provided her with a heating pad for back pain. After discussion with the patient, we have opted to try another Dulcolax suppository though I will be relatively hesitant to advance her diet with flatus immediately or even shortly after the placement of the suppository. Should regular bowel function began to return, the diet will be advanced slowly and cautiously.
[2018-03-09] MEDS: METOCLOPRAMIDE 5 MG/ML 2 ML VIAL IVP PRN ×3 (00:17→15:05)
[2018-03-09] MEDS: KETOROLAC 30 MG/ML 1 ML VIAL IVP PRN ×3 (00:17→20:00)
[2018-03-09] MEDS: SODIUM CHLORIDE 0.9% 1,000 ML IV SCH ×3 (06:47→20:00)
[2018-03-09] MEDS: PANTOPRAZOLE 40 MG/10 ML VIAL IV SCH (08:00)
[2018-03-09] MEDS ORDERED: POLYETHYLENE GLYCOL 3350 17 GM POWD.PACK PO STA (11:57)
--- NOTE | 2018-03-09 12:03 | P.PN ---
Subjective Progress Note Date: 03/09/18 Principal diagnosis: Ileus status post vaginal hysterectomy The patient reports that she did have 2 episodes of minimal flatus last evening while walking and did pass several small "rishi" of stool this morning. She denies any regular flatus and still feels significantly bloated and uncomfortable. She does not feel hungry. Objective - Vital Signs Vital signs: Vital Signs Temp 98.2 F 03/09/18 07:50 Pulse 71 03/09/18 07:50 Resp 16 03/09/18 07:50 BP 129/73 03/09/18 07:50 Pulse Ox 98 03/09/18 07:50 Intake & Output 03/08/18 03/09/18 03/09/18 18:59 06:59 18:59 Intake Total 1920 Balance 192 Weight 63.503 kg Intake: Intake, IV Titration 1920 Amount Sodium Chloride 0.9% 1, 1920 000 ml @ 120 mls/hr IV . Q8H20M [facility] Rx#:[id number] Other: Voiding Method Toilet Toilet Toilet # Voids 3 3 - Exam In general, this is a well-developed, well-nourished white female in no acute distress. Abdominal examination demonstrates minimal distention with hypoactive bowel sounds throughout though they are present occasionally. There are no masses nor is there any tenderness in the abdomen is otherwise soft. Extremities without any cyanosis, clubbing, or edema and are nontender to palpation. Pelvic examination is deferred. - Labs CBC & Chem 7: 03/07/18 10:54 03/07/18 10:54 Assessment and Plan (1) Ileus Current Visit: Yes Status: Acute Code(s): K56.7 - ILEUS, UNSPECIFIED SNOMED Code(s): 238455129 (2) S/P vaginal hysterectomy Current Visit: Yes Status: Acute Code(s): Z90.710 - ACQUIRED ABSENCE OF BOTH CERVIX AND UTERUS SNOMED Code(s): 193071299 Plan: Continue conservative management. I will add MiraLAX now and it may be repeated going forward. I still encourage regular ambulation. As the patient has not had any significant nutrition in at least 7 days, nutritional consultation has been sought for the possibility of PPN. Continue IV Reglan and Protonix as the patient does continue to complain of reflux symptoms.
[2018-03-09] MEDS ORDERED: BISACODYL 10 MG SUPP RECTAL PRN (16:05)
[2018-03-10] MEDS: METOCLOPRAMIDE 5 MG/ML 2 ML VIAL IVP PRN ×2 (00:24→07:51)
[2018-03-10] MEDS: KETOROLAC 30 MG/ML 1 ML VIAL IVP PRN (04:01)
[2018-03-10] MEDS: SODIUM CHLORIDE 0.9% 1,000 ML IV SCH ×2 (07:51→17:04)
[2018-03-10] MEDS: PANTOPRAZOLE 40 MG/10 ML VIAL IV SCH (09:04)
[2018-03-10] MEDS ORDERED: buPROPion XL 300 MG TAB.ER.24H PO SCH (11:00)
--- NOTE | 2018-03-10 12:25 | P.PN ---
Subjective Progress Note Date: 03/10/18 The patient reports no significant change in how she feels. She has passed several small stools again today but has had no flatus of any significance. She continues to ambulate routinely and denies any vaginal concerns. She reported having no significant results from either the MiraLAX or Dulcolax suppository yesterday. Objective - Vital Signs Vital signs: Vital Signs Temp 98.3 F 03/10/18 07:45 Pulse 79 03/10/18 07:45 Resp 16 03/10/18 07:45 BP 134/77 03/10/18 07:45 Pulse Ox 97 03/10/18 07:45 Intake & Output 03/09/18 03/10/18 03/10/18 18:59 06:59 18:59 Intake Total 1260 Balance 1260 Weight 63.503 kg Intake: Intake, IV Titration 960 Amount Sodium Chloride 0.9% 1, 960 000 ml @ 120 mls/hr IV . Q8H20M [facility] Rx#:[id number] Oral 300 Other: Voiding Method Toilet Toilet Toilet # Voids 3 3 - Exam In general, this is a well-developed, well-nourished white female in no acute distress. Her abdomen is mildly distended, has hypoactive bowel sounds, is soft , nontender, and without any palpable masses. Her extremities are without any cyanosis, clubbing, or edema and are nontender to palpation bilaterally. Pelvic exam is again deferred. - Labs CBC & Chem 7: 03/07/18 10:54 03/07/18 10:54 Assessment and Plan (1) Ileus Current Visit: Yes Status: Acute Code(s): K56.7 - ILEUS, UNSPECIFIED SNOMED Code(s): 370251205 (2) S/P vaginal hysterectomy Current Visit: Yes Status: Acute Code(s): Z90.710 - ACQUIRED ABSENCE OF BOTH CERVIX AND UTERUS SNOMED Code(s): 139396055 Plan: At this time, we will continue conservative therapy. I have formally consulted general surgery for an opinion. The patient reports that her nausea occurs with significant reflux prior despite Protonix and Reglan. There is a consideration for the possibility of trying solids in the form of crackers as it will be unlikely to make her current situation any worse but may relieve some of the symptoms of reflux. Further disposition will await the input of general surgery. PPN should be initiated today.
[2018-03-10 12:38] LABS: Ionized Calcium 4.8 mg/dL (4.5-5.3)
[2018-03-10 12:48] LABS: ALT 30 U/L (9-52); AST 22 U/L (14-36); Albumin 3.4 g/dL (3.5-5.0); Alkaline Phosphatase 37 U/L (38-126); Anion Gap 11 mmol/L; Blood Urea Nitrogen 10 mg/dL (7-17); Calcium 8.5 mg/dL (8.4-10.2); Carbon Dioxide 21 mmol/L (22-30); Chloride 103 mmol/L (98-107); Glucose 81 mg/dL (74-99); Magnesium 1.7 mg/dL (1.6-2.3); Phosphorus 3.1 mg/dL (2.5-4.5); Sodium 135 mmol/L (137-145); Total Bilirubin 0.6 mg/dL (0.2-1.3); Total Protein 5.8 g/dL (6.3-8.2); Triglycerides 51 mg/dL (<150)
--- NOTE | 2018-03-10 13:30 | P.GSCN ---
History of Present Illness Consult date: 03/10/18 Reason for Consult: Abdominal bloating History of present illness: 47-year-old female underwent vaginal hysterectomy 7 days ago. Patient went home and then return to the hospital 2 days later with increasing distention and vomiting. Patient had minimal discomfort. Never really has had significant discomfort. She has been afebrile. White blood cell count slightly elevated on arrival. Abdominal CAT scan reviewed. Patient has distended small bowel loops diffusely. Colon itself relatively decompressed. Findings of ileus favored over small bowel obstruction at that time. Patient has had her diet maintained on primarily liquids over the last several days. She has had a few small hard stools with minimal flatus. No significant abdominal cramping. She does feel nauseated. She has had increased reflux. This morning she had a large volume of emesis once again. During our evaluation she has had multiple episodes of bile tasting reflux. Electrolytes appear to be within normal limits on most recent labs. Only abdominal surgery is a laparoscopic cholecystectomy in the past. Patient tends to be constipated more often than not prior to the surgery. No previous colonoscopy. Review of Systems The patient denies any acute changes in vision or hearing, no dysphagia or odynophagia, no chest pain or shortness of breath, no dysuria or hematuria, no headache, no runny nose, no rectal bleeding or melena, no unexplained weight loss Past Medical History Past Medical History: No Reported History Additional Past Medical History / Comment(s): Constipation History of Any Multi-Drug Resistant Organisms: None Reported Past Surgical History: Cholecystectomy, Hysterectomy, Orthopedic Surgery, Tonsillectomy Additional Past Surgical History / Comment(s): Carpal tunel bilateral Past Anesthesia/Blood Transfusion Reactions: Postoperative Nausea & Vomiting ( PONV) Past Psychological History: No Psychological Hx Reported Smoking Status: Never smoker Past Alcohol Use History: Rare Past Drug Use History: None Reported Additional Drug Use History / Comment(s): Social alcohol use - Past Family History Mother Family Medical History: COPD, Respiratory Disorder Additional Family Medical History / Comment(s): emphysema Father Family Medical History: Diabetes Mellitus, Myocardial Infarction (ME) Additional Family Medical History / Comment(s): stroke Medications and Allergies Home Medications Medication Instructions Recorded Confirmed Type Loratadine-Pseudoeph 10-240 mg 1 tab PO DAILY 02/26/18 03/06/18 History [Claritin-D 24 Hr] Cholecalciferol [Vitamin D3] 1,000 unit PO DAILY 03/06/18 03/06/18 History Multivitamin,Therapeutic [Thera] 1 tab PO DAILY 03/06/18 03/06/18 History buPROPion HCL [Wellbutrin XL] 300 mg PO DAILY 03/06/18 03/06/18 History Allergies Allergy/AdvReac Type Severity Reaction Status Date / Time codeine Allergy Nausea & Verified 03/06/18 17:43 Vomiting Surgical - Exam Vital Signs Temp Pulse Resp BP Pulse Ox 98.6 F 71 18 114/76 100 03/06/18 17:00 03/06/18 17:00 03/06/18 17:00 03/06/18 17:00 03/06/18 17:00 Physical exam: General: Well-developed, well-nourished HEENT: Normocephalic, sclerae nonicteric Abdomen: Distended, minimal tenderness, bowel sounds diminished Extremities: No edema Neuro: Alert and oriented Results - Labs 03/07/18 10:54 03/10/18 11:57 Abnormal Lab Results - Last 24 Hours (Table) 03/10/18 Range/Units 11:57 Sodium 135 L (137-145) mmol/L Carbon Dioxide 21 L (22-30) mmol/L Alkaline Phosphatase 37 L (38-126) U/L Total Protein 5.8 L (6.3-8.2) g/dL Albumin 3.4 L (3.5-5.0) g/dL Diabetes panel 03/10/18 Range/Units 11:57 Sodium 135 L (137-145) mmol/L Potassium 4.0 (3.5-5.1) mmol/L Chloride 103 (98-107) mmol/L Carbon Dioxide 21 L (22-30) mmol/L BUN 10 (7-17) mg/dL Creatinine 0.52 (0.52-1.04) mg/dL Glucose 81 (74-99) mg/dL Calcium 8.5 (8.4-10.2) mg/dL AST 22 (14-36) U/L ALT 30 (9-52) U/L Alkaline Phosphatase 37 L (38-126) U/L Total Protein 5.8 L (6.3-8.2) g/dL Albumin 3.4 L (3.5-5.0) g/dL Triglycerides 51 (<150) mg/dL Calcium panel 03/10/18 Range/Units 11:57 Calcium 8.5 (8.4-10.2) mg/dL Ionized Calcium Clari 4.8 (4.5-5.3) mg/dL Phosphorus 3.1 (2.5-4.5) mg/dL Albumin 3.4 L (3.5-5.0) g/dL Pituitary panel 03/10/18 Range/Units 11:57 Sodium 135 L (137-145) mmol/L Potassium 4.0 (3.5-5.1) mmol/L Chloride 103 (98-107) mmol/L Carbon Dioxide 21 L (22-30) mmol/L BUN 10 (7-17) mg/dL Creatinine 0.52 (0.52-1.04) mg/dL Glucose 81 (74-99) mg/dL Calcium 8.5 (8.4-10.2) mg/dL Adrenal panel 03/10/18 Range/Units 11:57 Sodium 135 L (137-145) mmol/L Potassium 4.0 (3.5-5.1) mmol/L Chloride 103 (98-107) mmol/L Carbon Dioxide 21 L (22-30) mmol/L BUN 10 (7-17) mg/dL Creatinine 0.52 (0.52-1.04) mg/dL Glucose 81 (74-99) mg/dL Calcium 8.5 (8.4-10.2) mg/dL Total Bilirubin 0.6 (0.2-1.3) mg/dL AST 22 (14-36) U/L ALT 30 (9-52) U/L Alkaline Phosphatase 37 L (38-126) U/L Total Protein 5.8 L (6.3-8.2) g/dL Albumin 3.4 L (3.5-5.0) g/dL Assessment and Plan (1) Nausea & vomiting Narrative/Plan: CAT scan, history, and exam findings support the diagnosis of ileus at this time. Small bowel obstruction has not been excluded however. We'll check abdominal x-rays at this time. The patient is still having symptoms of distention, reflux and vomiting. Based on abdominal x-rays would strongly consider nasogastric tube for decompression. This should improve her symptoms and may help expedite resolution of ileus. If symptoms persist repeat CAT scan , small bowel series, or diagnostic laparoscopies discussed with the patient as options moving forward. We'll follow closely with you. Continue IV Reglan for now. Keep nothing by mouth. Current Visit: Yes Status: Acute Code(s): R11.2 - NAUSEA WITH VOMITING, UNSPECIFIED SNOMED Code(s): 65687871
[2018-03-10] MEDS ORDERED: MVI, ADULT NO.4 WITH VIT K 10 ML, TRACE (CONC-1ML/DOSE) 1 ML in AMINO ACID 4.25%-D10W+L... IV SCH ×3 (14:00)
[2018-03-10] MEDS: MAGNESIUM SULFATE-D5W PMX 1 GM in DEXTROSE/WATER 1 100ML.BAG IVPB SCH ×2 (14:40→17:45)
[2018-03-10] MEDS ORDERED: INSULIN ASPART 100 UNIT/ML 1 ML 10 ML VIAL SQ SCH (15:00)
--- NOTE | 2018-03-10 15:33 | XR ---
EXAMINATION TYPE: XR abdomen complete w decub DATE OF EXAM: 03/10/2018 COMPARISON: CT 03/06/2018 HISTORY: 47-year-old female with abdominal pain and distention, hysterectomy one week ago TECHNIQUE: Supine, upright, and left side down lateral decubitus views of the abdomen are obtained. FINDINGS: There is no evidence for pneumoperitoneum. Focal dilated small bowel loops in the right upper quadrant measuring up to 5.4 cm with air-fluid lev els. Cholecystectomy clips. Some mild stool in the cecum. Otherwise, overall possibility of colonic g as. IMPRESSION: Focal dilated small bowel loops in the right upper quadrant measuring up to 5.4 cm with air-fluid lev els. Loops measured up to 4.[address] Findings suspicious for ongoing small bowel obstructio n. No free air.
[2018-03-10] MEDS ORDERED: HEPARIN SODIUM,PORCINE 5,000 UNIT/ML 1 ML VIAL SQ SCH (16:00)
[2018-03-10] MEDS ORDERED: methylPREDNISolone SOD SUCCI 125 MG/2 ML VIAL IV SCH (16:00)
[2018-03-10] MEDS: METOCLOPRAMIDE 5 MG/ML 2 ML VIAL IVP SCH (17:46)
[2018-03-10] MEDS: FAT EMULSION 20% 250 ML in EMPTY BAG 1 BAG IV SCH (17:46)
[2018-03-10] MEDS: INSULIN ASPART 100 UNIT/ML 1 ML 10 ML VIAL SQ SCH (17:54)
[2018-03-10 18:03] LABS: Glucose,Whole Blood 122 mg/dL (75-99)
[2018-03-11 00:25] LABS: Glucose,Whole Blood 128 mg/dL (75-99)
[2018-03-11] MEDS: INSULIN ASPART 100 UNIT/ML 1 ML 10 ML VIAL SQ SCH ×4 (01:05→18:51)
[2018-03-11] MEDS: METOCLOPRAMIDE 5 MG/ML 2 ML VIAL IVP SCH ×4 (01:06→18:52)
[2018-03-11 05:52] LABS: Glucose,Whole Blood 131 mg/dL (75-99)
[2018-03-11] MEDS: PANTOPRAZOLE 40 MG/10 ML VIAL IV SCH (08:32)
[2018-03-11] MEDS: 1: MVI, ADULT NO.4 WITH VIT K 10 ML, TRACE (CONC-1ML/DOSE) 1 ML in AMINO ACID 4.25%-D10W IV SCH ×9 (08:32→23:48)
[2018-03-11] MEDS: SODIUM CHLORIDE 0.9% 1,000 ML IV SCH ×3 (08:33→18:50)
[2018-03-11 08:41] LABS: Basophils % (A) 0 %; Eosinophils # (A) 0.2 k/uL (0-0.7); Eosinophils % (A) 3 %; HCT 36.2 % (34.0-46.0); HGB 12.4 gm/dL (11.4-16.0); Lymphocytes # (A) 0.6 k/uL (1.0-4.8); Lymphocytes % (A) 11 %; MCH 32.3 pg (25.0-35.0); MCHC 34.3 g/dL (31.0-37.0); Mean Platelet Volume 6.2; Monocytes # (A) 0.5 k/uL (0-1.0); Monocytes % (A) 9 %; Neutrophils # (A) 4.4 k/uL (1.3-7.7); Neutrophils % (A) 76 %; Platelet Count 358 k/uL (150-450); RBC 3.84 m/uL (3.80-5.40); RDW 12.2 % (11.5-15.5); WBC 5.8 k/uL (3.8-10.6)
[2018-03-11 08:49] LABS: MCV 94.2 fL (80.0-100.0)
[2018-03-11 08:50] LABS: Anion Gap 8 mmol/L; Blood Urea Nitrogen 10 mg/dL (7-17); Calcium 7.9 mg/dL (8.4-10.2); Carbon Dioxide 28 mmol/L (22-30); Chloride 98 mmol/L (98-107); Glucose 151 mg/dL (74-99); Phosphorus 2.5 mg/dL (2.5-4.5); Potassium 3.2 mmol/L (3.5-5.1); Sodium 134 mmol/L (137-145)
[2018-03-11] MEDS ORDERED: CHOLECALCIFEROL 1,000 UNIT TAB PO SCH (09:00)
--- NOTE | 2018-03-11 09:47 | P.PN ---
Subjective Progress Note Date: 03/11/18 The patient reports feeling as though she may need to use the bathroom to move her bowels but has been unable to do so. She continues to deny flatus. She does continue to have a bili is taste in her throat with reflux. She continues to ambulate regularly. She reports feeling distended, particularly when she is walking. She denies any significant discomfort or pain and has no vaginal symptoms of any kind. She reports feeling significantly better since receiving PPN. Objective - Vital Signs Vital signs: Vital Signs Temp 98.0 F 03/11/18 07:58 Pulse 76 03/11/18 07:58 Resp 20 03/11/18 07:58 BP 127/78 03/11/18 07:58 Pulse Ox 97 03/11/18 07:58 Intake & Output 03/10/18 03/11/18 03/11/18 18:59 06:59 18:59 Weight 71.9 kg Other: Voiding Method Toilet Toilet # Voids 1 - Exam In general, this is a well-developed, well-nourished white female in no acute distress. Her heart has regular rhythm and rate without murmur. Her lungs are clear to auscultation bilaterally in all ahn. Her abdomen is mildly distended, soft, nontender, and without any palpable masses. There are relatively normal bowel sounds in all 4 quadrants this morning. Her extremities are without any cyanosis, clubbing, or edema and are nontender to palpation. - Labs CBC & Chem 7: 03/11/18 07:19 03/11/18 07:19 Labs: Abnormal Lab Results - Last 24 Hours (Table) 03/10/18 03/10/18 03/11/18 Range/Units 11:57 17:51 00:13 Lymphocytes # (1.0-4.8) k/uL Sodium 135 L (137-145) mmol/L Potassium (3.5-5.1) mmol/L Carbon Dioxide 21 L (22-30) mmol/L Creatinine (0.52-1.04) mg/dL Glucose (74-99) mg/dL POC Glucose (mg/dL) 122 H 128 H (75-99) mg/dL Calcium (8.4-10.2) mg/dL Alkaline Phosphatase 37 L (38-126) U/L Total Protein 5.8 L (6.3-8.2) g/dL Albumin 3.4 L (3.5-5.0) g/dL 03/11/18 03/11/18 03/11/18 Range/Units 05:31 07:19 07:19 Lymphocytes # 0.6 L (1.0-4.8) k/uL Sodium 134 L (137-145) mmol/L Potassium 3.2 L (3.5-5.1) mmol/L Carbon Dioxide (22-30) mmol/L Creatinine 0.42 L (0.52-1.04) mg/dL Glucose 151 H (74-99) mg/dL POC Glucose (mg/dL) 131 H (75-99) mg/dL Calcium 7.9 L (8.4-10.2) mg/dL Alkaline Phosphatase (38-126) U/L Total Protein (6.3-8.2) g/dL Albumin (3.5-5.0) g/dL Assessment and Plan (1) Ileus Current Visit: Yes Status: Acute Code(s): K56.7 - ILEUS, UNSPECIFIED SNOMED Code(s): 987412510 (2) S/P vaginal hysterectomy Current Visit: Yes Status: Acute Code(s): Z90.710 - ACQUIRED ABSENCE OF BOTH CERVIX AND UTERUS SNOMED Code(s): 254453112 Plan: The NG was unable to be placed last evening on 2 separate attempts. It was left out in favor of reevaluation this morning. I am encouraged by significantly more bowel sounds on examination today been in the past. I still encouraged her to ambulate routinely. Peripheral nutrition will continue to be given. Some consideration might be given to a fleets enema in order to help empty her colon and encourage further activity from the small bowel. Further decision making will await the evaluation of general surgery this morning.
[2018-03-11 11:28] LABS: Glucose,Whole Blood 143 mg/dL (75-99)
--- NOTE | 2018-03-11 13:33 | P.PN ---
Subjective Progress Note Date: 03/11/18 Principal diagnosis: Ileus versus small bowel obstruction Patient is unable to tolerate the nasogastric tube placement last night. Feels slightly better today. No vomiting. No flatus or bowel movement however. White blood cell count was normal. Today's potassium is low at 3.2. Objective - Vital Signs Vital signs: Vital Signs Temp 98.0 F 03/11/18 07:58 Pulse 76 03/11/18 07:58 Resp 20 03/11/18 07:58 BP 127/78 03/11/18 07:58 Pulse Ox 97 03/11/18 07:58 Intake & Output 03/10/18 03/11/18 03/11/18 18:59 06:59 18:59 Weight 71.9 kg Other: Voiding Method Toilet Toilet # Voids 1 - Exam Abdomen: Soft, mild distention, no appreciable tenderness, increased bowel sounds since yesterday still somewhat hypoactive - Labs CBC & Chem 7: 03/11/18 07:19 03/11/18 07:19 Labs: Abnormal Lab Results - Last 24 Hours (Table) 03/10/18 03/11/18 03/11/18 Range/Units 17:51 00:13 05:31 Lymphocytes # (1.0-4.8) k/uL Sodium (137-145) mmol/L Potassium (3.5-5.1) mmol/L Creatinine (0.52-1.04) mg/dL Glucose (74-99) mg/dL POC Glucose (mg/dL) 122 H 128 H 131 H (75-99) mg/dL Calcium (8.4-10.2) mg/dL 03/11/18 03/11/18 03/11/18 Range/Units 07:19 07:19 11:16 Lymphocytes # 0.6 L (1.0-4.8) k/uL Sodium 134 L (137-145) mmol/L Potassium 3.2 L (3.5-5.1) mmol/L Creatinine 0.42 L (0.52-1.04) mg/dL Glucose 151 H (74-99) mg/dL POC Glucose (mg/dL) 143 H (75-99) mg/dL Calcium 7.9 L (8.4-10.2) mg/dL Assessment and Plan (1) Nausea & vomiting Narrative/Plan: Will check small bowel series tomorrow. Decisions regarding diagnostic laparoscopy will be made based on the findings. Discussed the case with Dr. Raymond by phone. Current Visit: Yes Status: Acute Code(s): R11.2 - NAUSEA WITH VOMITING, UNSPECIFIED SNOMED Code(s): 90282933
[2018-03-11] MEDS ORDERED: Potassium Replacement Protocol 1 EACH MISC MISCELLANE PRN (13:36)
[2018-03-11] MEDS ORDERED: POTASSIUM PHOSPHATE 10 MMOL in SODIUM CHLORIDE 0.9% 250 ML IV ONE (14:00)
[2018-03-11] MEDS ORDERED: POTASSIUM CHLORIDE 20 MEQ in WATER FOR INJECTION 1 100ML.BAG IVPB ONE (16:00)
[2018-03-11] MEDS: POTASSIUM CHLORIDE 10 MEQ in WATER FOR INJECTION 1 100ML.BAG IVPB SCH ×2 (16:38→18:53)
[2018-03-11 17:33] LABS: Glucose,Whole Blood 129 mg/dL (75-99)
[2018-03-11] MEDS: FAT EMULSION 20% 250 ML in EMPTY BAG 1 BAG IV SCH (18:46)
[2018-03-11] MEDS: ONDANSETRON 4 MG/2 ML VIAL IVP PRN (19:57)
[2018-03-11 20:28] LABS: Glucose,Whole Blood 139 mg/dL (75-99)
[2018-03-11] MEDS: KETOROLAC 30 MG/ML 1 ML VIAL IVP PRN (22:45)
[2018-03-12] MEDS: INSULIN ASPART 100 UNIT/ML 1 ML 10 ML VIAL SQ SCH ×4 (01:16→20:47)
[2018-03-12] MEDS: SODIUM CHLORIDE 0.9% 1,000 ML IV SCH ×3 (01:16→17:36)
[2018-03-12] MEDS: METOCLOPRAMIDE 5 MG/ML 2 ML VIAL IVP SCH ×4 (01:19→17:41)
[2018-03-12 01:23] LABS: Glucose,Whole Blood 119 mg/dL (75-99)
[2018-03-12] MEDS: 1: MVI, ADULT NO.4 WITH VIT K 10 ML, TRACE (CONC-1ML/DOSE) 1 ML in AMINO ACID 4.25%-D10W IV SCH ×6 (05:06→20:56)
[2018-03-12 05:21] LABS: Glucose,Whole Blood 114 mg/dL (75-99)
[2018-03-12 07:28] LABS: Anion Gap 6 mmol/L; Blood Urea Nitrogen 11 mg/dL (7-17); Calcium 8.2 mg/dL (8.4-10.2); Carbon Dioxide 30 mmol/L (22-30); Chloride 101 mmol/L (98-107); Glucose 117 mg/dL (74-99); Phosphorus 3.7 mg/dL (2.5-4.5); Potassium 3.4 mmol/L (3.5-5.1); Sodium 137 mmol/L (137-145)
[2018-03-12 07:33] LABS: Ionized Calcium 4.7 mg/dL (4.5-5.3)
[2018-03-12] MEDS: PANTOPRAZOLE 40 MG/10 ML VIAL IV SCH (07:48)
--- NOTE | 2018-03-12 08:18 | P.PN ---
Subjective Progress Note Date: 03/12/18 Principal diagnosis: Postoperative ileus versus small bowel obstruction, hospital day #6 Patient states she is feeling slightly improved this morning. Small amount of flatus passed this morning. Denies pain, no vaginal bleeding. Objective - Vital Signs Vital signs: Vital Signs Temp 98.0 F 03/12/18 07:45 Pulse 79 03/12/18 07:45 Resp 16 03/12/18 07:45 BP 120/77 03/12/18 07:45 Pulse Ox 97 03/12/18 07:45 Intake & Output 03/11/18 03/12/18 03/12/18 18:59 06:59 18:59 Intake Total 939 1011 Output Total 300 Balance 939 711 Intake: Intake, IV Titration 939 1011 Amount Mvi, Adult No.4 with Vit 939 1011 K 10 ml Trace (Conc-1Ml/ Dose) 1 ml In Amino Acid 4.25%-D10w+Lytes*E* 1,000 ml @ 90 mls/hr IV .[facility] Rx#: [id number] Output: Emesis 300 Other: Voiding Method Toilet - Constitutional General appearance: Present: average body habitus, cooperative - EENT Eyes: Present: PERRLA ENT: Present: hearing grossly normal - Neck Neck: Present: normal ROM - Respiratory Respiratory: bilateral: CTA - Cardiovascular Rhythm: regular - Gastrointestinal Gastrointestinal Comment(s): Abdomen is soft, nontender, slightly distended. No rebound or guarding. No CVA tenderness. General gastrointestinal: Present: decreased bowel sounds - Integumentary Integumentary: Present: normal turgor - Neurologic Neurologic: Present: CNII-XII intact - Musculoskeletal Musculoskeletal: Present: gait normal - Psychiatric Psychiatric: Present: A&O x's 3, appropriate affect, intact judgment & insight - Labs CBC & Chem 7: 03/11/18 07:19 03/12/18 06:41 Labs: Abnormal Lab Results - Last 24 Hours (Table) 03/11/18 03/11/18 03/11/18 Range/Units 07:19 07:19 11:16 Lymphocytes # 0.6 L (1.0-4.8) k/uL Sodium 134 L (137-145) mmol/L Potassium 3.2 L (3.5-5.1) mmol/L Creatinine 0.42 L (0.52-1.04) mg/dL Glucose 151 H (74-99) mg/dL POC Glucose (mg/dL) 143 H (75-99) mg/dL Calcium 7.9 L (8.4-10.2) mg/dL 03/11/18 03/11/18 03/12/18 Range/Units 17:21 20:16 01:12 Lymphocytes # (1.0-4.8) k/uL Sodium (137-145) mmol/L Potassium (3.5-5.1) mmol/L Creatinine (0.52-1.04) mg/dL Glucose (74-99) mg/dL POC Glucose (mg/dL) 129 H 139 H 119 H (75-99) mg/dL Calcium (8.4-10.2) mg/dL 03/12/18 03/12/18 Range/Units 05:10 06:41 Lymphocytes # (1.0-4.8) k/uL Sodium (137-145) mmol/L Potassium 3.4 L (3.5-5.1) mmol/L Creatinine 0.43 L (0.52-1.04) mg/dL Glucose 117 H (74-99) mg/dL POC Glucose (mg/dL) 114 H (75-99) mg/dL Calcium 8.2 L (8.4-10.2) mg/dL - Imaging and Cardiology Abdominal x-ray: pending Assessment and Plan Assessment: Postoperative ileus versus small bowel obstruction. Gradual improvement noted. Potassium 3.4, white count 5.8. Plan: Patient leaving the floor at this time for small bowel series. Consideration for diagnostic laparoscopy versus continued conservative management. Appreciate general surgery following. I have discussed the case thoroughly with both Dr. Wilson and Dr. Good. Will continue to follow. Time with Patient: Greater than 30
[2018-03-12 09:56] LABS: Hemoglobin A1C 4.5 % (4.0-6.0)
[2018-03-12 12:05] LABS: Glucose,Whole Blood 115 mg/dL (75-99)
[2018-03-12] MEDS: POTASSIUM CHLORIDE 10 MEQ in WATER FOR INJECTION 1 100ML.BAG IVPB SCH ×2 (12:37→17:15)
--- NOTE | 2018-03-12 13:58 | FL ---
EXAMINATION TYPE: FL small bowel follow through DATE OF EXAM: 03/12/2018 1:43 PM COMPARISON: NONE HISTORY: Abdominal Pain Pt given 16 oz of isovue 370. The patient ingested 16 ounces of Isovue-370. Small bowel follow-through was performed with transit t giulia of 240 minutes. At the [address] Good discontinued the examination. There are dilated loops of small bowel extending to the right lower quadrant. No cecal contrast is identified at 240 mi nutes. No evidence for filling defect to suggest intraluminal lesion or extrinsic mass effect at this time. IMPRESSION: Nonvisualization of large bowel at the 240 minute time frame. Dilated small bowel extendi ng to the right lower quadrant. Examination discontinued by Dr. Good as noted above.
[2018-03-12] MEDS ORDERED: SODIUM CHLORIDE 0.9% 450 ML IV ONE (14:00)
[2018-03-12] MEDS ORDERED: ceFAZolin IN SWFI 2 GM/20 ML SYRINGE IVP ONE (14:26)
[2018-03-12] MEDS ORDERED: LIDOCAINE 1% 20 ML VIAL (10MG/ML) FOR IV START INTRADERMA ONE (14:29)
[2018-03-12] MEDS ORDERED: LACTATED RINGERS 1,000 ML IV ONE ×2 (14:29→15:21)
[2018-03-12] MEDS ORDERED: ONDANSETRON 4 MG/2 ML VIAL IVP ONE (14:30)
[2018-03-12] MEDS ORDERED: DEXAMETHASONE SOD PHOSPHATE 10 MG/ML 1 ML VIAL IV ONE (14:31)
[2018-03-12] MEDS ORDERED: HEPARIN SODIUM,PORCINE 5,000 UNIT/ML 1 ML VIAL SQ ONE (14:31)
[2018-03-12] MEDS ORDERED: LIDOCAINE 1% INJ 10MG/ML (20 ML MDV) ONE (14:35)
[2018-03-12] MEDS ORDERED: ROCURONIUM BROMIDE 10 MG/ML 10 ML VIAL IV ONE (14:35)
[2018-03-12] MEDS ORDERED: fentaNYL (PF) 50 MCG/ML 2 ML AMP ONE (14:35)
[2018-03-12] MEDS ORDERED: MIDAZOLAM 2 MG/2 ML VIAL ONE (14:35)
[2018-03-12] MEDS ORDERED: PROPOFOL 10 MG/ML 20 ML VIAL IV ONE (14:35)
[2018-03-12] MEDS ORDERED: ceFAZolin 1,000 MG VIAL ONE (14:35)
[2018-03-12] MEDS ORDERED: SUCCINYLCHOLINE CHLORIDE 100 MG/5 ML SYR IV ONE (14:35)
[2018-03-12] MEDS ORDERED: SODIUM CHLORIDE 0.9% 50 ML with ceFAZolin 2,000 MG IV ONE ×2 (15:01)
[2018-03-12] MEDS ORDERED: BUPIVACAIN-EPI 0.25%-1:200,000 30 ML VIAL SQ ONE (15:05)
--- NOTE | 2018-03-12 15:51 | P.OP ---
Date of Procedure: 03/12/18 Procedure(s) Performed: PREOPERATIVE DIAGNOSIS: Small bowel obstruction POSTOPERATIVE DIAGNOSIS: Small bowel obstruction secondary to pelvic adhesion/ stitch PROCEDURE: Laparoscopic lysis of adhesions SURGEON: Florentino EBL: Total ANESTHESIA: General COMPLICATIONS: None OPERATIVE PROCEDURE: The patient was brought and placed on the operating table in the supine position. The patient was placed under general anesthesia. The abdomen was prepped and draped in the usual sterile fashion. A small vertical infraumbilical incision was made. The fascia was retracted anteriorly with Anjelica forceps. The Veress needle was advanced into the peritoneal cavity. The saline drop test was normal. Insufflation took place to 15 mmHg. A 5 mm trocar was then placed. 2 additional 5 mm trochars were placed in the left lower quadrant. The patient was placed in the steep Trendelenburg. There was some serosanguineous fluid in the pelvis which was evacuated. Blunt dissection revealed that a loop of the terminal ileum approximately 10-15 cm from the ileocecal valve. There was a stitch which Dr. Raymond recognized as a Vicryl suture that was seen extending towards the small bowel. This appeared to be tethering the bowel and some fashion. I was unable to see where it was presumably entering the small bowel. Using the laparoscopic scissors we were able to lyse that stitch and at that point the small bowel was able to be retracted out of the pelvis quite easily. There were no other abnormalities present. The bowel was examined. The last 3 feet or so of the ileum was inspected. There appeared to be slight narrowing at the obstruction site. There was no evidence of necrosis however. There was a small area of superficial ischemic change to the mesentery however. As we watched the site of narrowing it did seem to distend spontaneously. This was approximately 8-10 cm from the ileocecal valve at that point. I felt that resection of that segment was not indicated at this time. No other abnormalities were identified. The area was irrigated. No bleeding was seen. I did take a 5 mm clipper to secure the 2 loose ends of the suture that was present along the right adnexa. We watched that area for some time and no bleeding was seen. The trochars were removed. The skin at all 3 sites was closed using 4-0 Monocryl sutures. Skin glue and sterile dressings then applied. DISPOSITION: Stable to recovery room
[2018-03-12] MEDS ORDERED: ACETAMINOPHEN IV (For NPO) 1,000 MG in EMPTY BAG 1 BAG IVPB ONE (16:00)
[2018-03-12 16:26] LABS: Glucose,Whole Blood 94 mg/dL (75-99)
[2018-03-12] MEDS: KETOROLAC 30 MG/ML 1 ML VIAL IVP SCH ×2 (17:41→22:48)
[2018-03-12] MEDS: HEPARIN SODIUM,PORCINE 5,000 UNIT/ML 1 ML VIAL SQ SCH (17:41)
[2018-03-12 18:18] LABS: Glucose,Whole Blood 113 mg/dL (75-99)
[2018-03-12] MEDS: FAT EMULSION 20% 250 ML in EMPTY BAG 1 BAG IV SCH (20:55)
[2018-03-12] MEDS ORDERED: BENZOCAINE SPRAY 1 CAN MUCOUS MEM PRN (21:11)
[2018-03-13] MEDS: diphenhydrAMINE 50 MG/ML 1 ML VIAL IVP PRN ×2 (00:07→22:06)
[2018-03-13] MEDS: METOCLOPRAMIDE 5 MG/ML 2 ML VIAL IVP SCH ×4 (00:07→17:46)
[2018-03-13] MEDS: INSULIN ASPART 100 UNIT/ML 1 ML 10 ML VIAL SQ SCH ×4 (00:08→18:01)
[2018-03-13] MEDS: SODIUM CHLORIDE 0.9% 1,000 ML IV SCH ×3 (00:08→18:01)
[2018-03-13] MEDS: HEPARIN SODIUM,PORCINE 5,000 UNIT/ML 1 ML VIAL SQ SCH ×3 (00:08→16:22)
[2018-03-13 00:13] LABS: Glucose,Whole Blood 137 mg/dL (75-99)
[2018-03-13] MEDS: KETOROLAC 30 MG/ML 1 ML VIAL IVP SCH ×4 (05:00→21:54)
[2018-03-13 06:00] LABS: Glucose,Whole Blood 103 mg/dL (75-99)
[2018-03-13] MEDS: PANTOPRAZOLE 40 MG/10 ML VIAL IV SCH (07:41)
--- NOTE | 2018-03-13 07:46 | P.PN ---
Subjective Progress Note Date: 03/13/18 Principal diagnosis: Postoperative day #1, status post diagnostic laparoscopy and lysis of bowel adhesions. Patient has had 7 bowel movements since surgery, with passage of significant gas. She has minimal pain this morning. No vaginal bleeding. Objective - Vital Signs Vital signs: Vital Signs Temp 98.9 F 03/13/18 00:04 Pulse 92 03/13/18 00:04 Resp 14 03/13/18 01:09 BP 121/80 03/13/18 00:04 Pulse Ox 97 03/13/18 00:04 Intake & Output 03/12/18 03/13/18 03/13/18 18:59 06:59 18:59 Intake Total 1850 1021 Output Total 2725 1300 Balance -875 -279 Intake: IV 1850 Intake, IV Titration 1021 Amount Amino Acid 4.25%-D10w+ 1000 Lytes*E* 1,000 ml @ 90 mls/hr IV .BY DURATION [facility] Rx#:[id number] Fat Emulsion 20% 250 ml 21 In Empty Bag 1 bag @ 21 mls/hr IV DAILY@1800 [facility] Rx#:[id number] Output: Gastric Drainage 100 Urine 220 1200 Emesis 2500 Estimated Blood Loss 5 Other: Voiding Method Indwelling Catheter Indwelling Catheter # Bowel Movements 2 - Constitutional General appearance: Present: average body habitus, cooperative - EENT Eyes: Present: PERRLA ENT: Present: hearing grossly normal - Neck Neck: Present: normal ROM - Respiratory Respiratory: bilateral: CTA - Cardiovascular Rhythm: regular - Gastrointestinal Gastrointestinal Comment(s): 3 small laparoscopic incisions well approximated, clean and dry. General gastrointestinal: Present: normal bowel sounds - Neurologic Neurologic: Present: CNII-XII intact - Musculoskeletal Musculoskeletal: Present: generalized weakness - Psychiatric Psychiatric: Present: A&O x's 3, appropriate affect, intact judgment & insight - Labs CBC & Chem 7: 03/11/18 07:19 03/12/18 06:41 Labs: Abnormal Lab Results - Last 24 Hours (Table) 03/12/18 03/12/18 03/13/18 Range/Units 11:53 18:07 00:02 POC Glucose (mg/dL) 115 H 113 H 137 H (75-99) mg/dL 03/13/18 Range/Units 05:48 POC Glucose (mg/dL) 103 H (75-99) mg/dL Assessment and Plan Assessment: Postoperative day #1, status post diagnostic laparoscopy, vaginal cuff stitch release and adhesiolyse's. Plan: I spent a fair amount of time with the patient and her significant other this morning explaining intraoperative findings and procedure. She is feeling greatly improved. We will advance diet and activity per general surgery's recommendation. If patient is steady on her feet this morning, will DC Roa catheter, Hep-Lock IV and allow her to shower. Will continue to follow closely. Time with Patient: Greater than 30
[2018-03-13] MEDS: 1: MVI, ADULT NO.4 WITH VIT K 10 ML, TRACE (CONC-1ML/DOSE) 1 ML in AMINO ACID 4.25%-D10W IV SCH ×6 (08:50→19:55)
[2018-03-13 09:02] LABS: Anion Gap 7 mmol/L; Blood Urea Nitrogen 13 mg/dL (7-17); Calcium 8.1 mg/dL (8.4-10.2); Carbon Dioxide 27 mmol/L (22-30); Chloride 102 mmol/L (98-107); Glucose 110 mg/dL (74-99); Magnesium 1.7 mg/dL (1.6-2.3); Phosphorus 3.5 mg/dL (2.5-4.5); Potassium 3.6 mmol/L (3.5-5.1); Sodium 136 mmol/L (137-145)
[2018-03-13] MEDS: POTASSIUM CHLORIDE 10 MEQ in WATER FOR INJECTION 1 100ML.BAG IVPB SCH ×2 (10:59→15:01)
[2018-03-13] MEDS: MAGNESIUM SULFATE-D5W PMX 1 GM in DEXTROSE/WATER 1 100ML.BAG IVPB SCH ×2 (11:01→13:25)
[2018-03-13 12:34] LABS: Glucose,Whole Blood 121 mg/dL (75-99)
[2018-03-13] MEDS: BENZOCAINE/MENTHOL LOZENG 1 EACH LOZENGE MUCOUS MEM PRN ×2 (15:04→21:59)
[2018-03-13] MEDS: FAT EMULSION 20% 250 ML in EMPTY BAG 1 BAG IV SCH (17:35)
[2018-03-13 18:12] LABS: Glucose,Whole Blood 112 mg/dL (75-99)
--- NOTE | 2018-03-13 20:06 | P.PN ---
Subjective Progress Note Date: 03/13/18 Principal diagnosis: Ileus versus small bowel obstruction Patient feels better today. She did have multiple loose stools last night. Still with moderate nasogastric tube output. Some cramps at times. Overall feels fairly well. Electrolytes noted. Objective - Vital Signs Vital signs: Vital Signs Temp 98.8 F 03/13/18 14:45 Pulse 100 03/13/18 14:45 Resp 16 03/13/18 14:45 BP 117/74 03/13/18 14:45 Pulse Ox 98 03/13/18 14:45 Intake & Output 03/13/18 03/13/18 03/14/18 06:59 18:59 06:59 Intake Total 1021 1011 1000 Output Total 1300 500 Balance -421 820 5198 Weight 71.9 kg Intake: Intake, IV Titration 1021 1011 1000 Amount Amino Acid 4.25%-D10w+ 1000 1000 Lytes*E* 1,000 ml @ 90 mls/hr IV .BY DURATION [facility] Rx#:[id number] Fat Emulsion 20% 250 ml 21 In Empty Bag 1 bag @ 21 mls/hr IV DAILY@1800 [facility] Rx#:[id number] Mvi, Adult No.4 with Vit 1011 K 10 ml Trace (Conc-1Ml/ Dose) 1 ml In Amino Acid 4.25%-D10w+Lytes*E* 1,000 ml @ 90 mls/hr IV .BY DURATION [facility] Rx#: [id number] Output: Gastric Drainage 100 Urine 1200 500 Uretheral (Roa) 500 Other: Voiding Method Indwelling Catheter # Voids 1 # Bowel Movements 2 - Exam Abdomen: Soft, mild distention, incisions clean and dry with minimal tenderness - Labs CBC & Chem 7: 03/11/18 07:19 03/13/18 07:35 Labs: Abnormal Lab Results - Last 24 Hours (Table) 03/13/18 03/13/18 03/13/18 Range/Units 00:02 05:48 07:35 Sodium 136 L (137-145) mmol/L Creatinine 0.44 L (0.52-1.04) mg/dL Glucose 110 H (74-99) mg/dL POC Glucose (mg/dL) 137 H 103 H (75-99) mg/dL Calcium 8.1 L (8.4-10.2) mg/dL 03/13/18 03/13/18 Range/Units 12:23 18:00 Sodium (137-145) mmol/L Creatinine (0.52-1.04) mg/dL Glucose (74-99) mg/dL POC Glucose (mg/dL) 121 H 112 H (75-99) mg/dL Calcium (8.4-10.2) mg/dL Assessment and Plan (1) Nausea & vomiting Narrative/Plan: Will clamp nasogastric tube tomorrow morning at 6 AM. Monitor for nausea. Hopefully can remove nasogastric tube tomorrow and begin diet. Recheck labs tomorrow. Current Visit: Yes Status: Acute Code(s): R11.2 - NAUSEA WITH VOMITING, UNSPECIFIED SNOMED Code(s): 25207384
[2018-03-13 23:57] LABS: Glucose,Whole Blood 118 mg/dL (75-99)
[2018-03-14] MEDS: METOCLOPRAMIDE 5 MG/ML 2 ML VIAL IVP SCH ×2 (00:44→05:59)
[2018-03-14] MEDS: HEPARIN SODIUM,PORCINE 5,000 UNIT/ML 1 ML VIAL SQ SCH ×4 (00:45→23:56)
[2018-03-14] MEDS: KETOROLAC 30 MG/ML 1 ML VIAL IVP SCH ×2 (03:38→09:26)
[2018-03-14] MEDS: SODIUM CHLORIDE 0.9% 1,000 ML IV SCH ×3 (04:53→21:38)
[2018-03-14] MEDS: INSULIN ASPART 100 UNIT/ML 1 ML 10 ML VIAL SQ SCH ×4 (05:59→18:10)
[2018-03-14 06:09] LABS: Glucose,Whole Blood 113 mg/dL (75-99)
[2018-03-14 07:30] LABS: Basophils % (A) 0 %; Eosinophils # (A) 0.3 k/uL (0-0.7); Eosinophils % (A) 2 %; HCT 34.2 % (34.0-46.0); HGB 11.4 gm/dL (11.4-16.0); Lymphocytes % (A) 9 %; MCH 32.3 pg (25.0-35.0); MCHC 33.4 g/dL (31.0-37.0); MCV 96.7 fL (80.0-100.0); Mean Platelet Volume 6.9; Monocytes # (A) 0.5 k/uL (0-1.0); Monocytes % (A) 4 %; Neutrophils # (A) 10.1 k/uL (1.3-7.7); Neutrophils % (A) 84 %; Platelet Count 371 k/uL (150-450); RBC 3.53 m/uL (3.80-5.40); RDW 12.2 % (11.5-15.5)
[2018-03-14] MEDS: PANTOPRAZOLE 40 MG/10 ML VIAL IV SCH (07:47)
[2018-03-14] MEDS: 1: MVI, ADULT NO.4 WITH VIT K 10 ML, TRACE (CONC-1ML/DOSE) 1 ML in AMINO ACID 4.25%-D10W IV SCH ×6 (07:48→15:13)
[2018-03-14 07:49] LABS: Anion Gap 5 mmol/L; Blood Urea Nitrogen 13 mg/dL (7-17); Carbon Dioxide 28 mmol/L (22-30); Chloride 103 mmol/L (98-107); Glucose 112 mg/dL (74-99); Phosphorus 3.4 mg/dL (2.5-4.5); Potassium 3.9 mmol/L (3.5-5.1); Sodium 136 mmol/L (137-145)
--- NOTE | 2018-03-14 08:03 | P.PN ---
Subjective Progress Note Date: 03/14/18 Principal diagnosis: Postoperative day number to Patient continues to pass flatus. NG tube clamp for 90 minutes, no nausea. Patient feels hungry and would like to eat. No vaginal bleeding. No pain. Objective - Vital Signs Vital signs: Vital Signs Temp 99.0 F 03/14/18 07:00 Pulse 93 03/14/18 07:00 Resp 18 03/14/18 07:00 BP 114/75 03/14/18 07:00 Pulse Ox 97 03/14/18 07:00 Intake & Output 03/13/18 03/14/18 03/14/18 18:59 06:59 18:59 Intake Total 1011 1540 Output Total 500 50 Balance 511 1490 Weight 71.9 kg 67.4 kg Intake: Intake, IV Titration 1011 1540 Amount Amino Acid 4.25%-D10w+ 1000 Lytes*E* 1,000 ml @ 90 mls/hr IV .BY DURATION [facility] Rx#:[id number] Fat Emulsion 20% 250 ml 250 In Empty Bag 1 bag @ 21 mls/hr IV DAILY@1800 [facility] Rx#:[id number] Mvi, Adult No.4 with Vit 1011 K 10 ml Trace (Conc-1Ml/ Dose) 1 ml In Amino Acid 4.25%-D10w+Lytes*E* 1,000 ml @ 90 mls/hr IV .BY DURATION [facility] Rx#: [id number] Sodium Chloride 0.9% 1, 290 000 ml @ 120 mls/hr IV . Q8H20M [facility] Rx#:[id number] Output: Urine 500 Uretheral (Roa) 500 Oral Regurgitation 50 Other: # Voids 1 1 # Bowel Movements 2 - Constitutional General appearance: Present: average body habitus, cooperative - EENT Eyes: Present: PERRLA ENT: Present: hearing grossly normal - Neck Neck: Present: normal ROM - Respiratory Respiratory: bilateral: CTA - Cardiovascular Rhythm: regular - Gastrointestinal Gastrointestinal Comment(s): 3 small abdominal incisions well approximated, no drainage. Nontender. General gastrointestinal: Present: normal bowel sounds - Integumentary Integumentary: Present: normal - Neurologic Neurologic: Present: CNII-XII intact - Musculoskeletal Musculoskeletal: Present: gait normal, strength equal bilaterally - Psychiatric Psychiatric: Present: A&O x's 3, appropriate affect, intact judgment & insight - Labs CBC & Chem 7: 03/14/18 06:45 03/14/18 06:45 Labs: Abnormal Lab Results - Last 24 Hours (Table) 03/13/18 03/13/18 03/13/18 Range/Units 07:35 12:23 18:00 WBC (3.8-10.6) k/uL RBC (3.80-5.40) m/uL Neutrophils # (1.3-7.7) k/uL Sodium 136 L (137-145) mmol/L Creatinine 0.44 L (0.52-1.04) mg/dL Glucose 110 H (74-99) mg/dL POC Glucose (mg/dL) 121 H 112 H (75-99) mg/dL Calcium 8.1 L (8.4-10.2) mg/dL 03/13/18 03/14/18 03/14/18 Range/Units 23:44 05:57 06:45 WBC (3.8-10.6) k/uL RBC (3.80-5.40) m/uL Neutrophils # (1.3-7.7) k/uL Sodium 136 L (137-145) mmol/L Creatinine 0.45 L (0.52-1.04) mg/dL Glucose 112 H (74-99) mg/dL POC Glucose (mg/dL) 118 H 113 H (75-99) mg/dL Calcium 8.0 L (8.4-10.2) mg/dL 03/14/18 Range/Units 06:45 WBC 12.0 H (3.8-10.6) k/uL RBC 3.53 L (3.80-5.40) m/uL Neutrophils # 10.1 H (1.3-7.7) k/uL Sodium (137-145) mmol/L Creatinine (0.52-1.04) mg/dL Glucose (74-99) mg/dL POC Glucose (mg/dL) (75-99) mg/dL Calcium (8.4-10.2) mg/dL Assessment and Plan Assessment: Postoperative day #2, doing well. Plan: NG removal per Dr. Good. Likely advance of diet today. Possible discharge home tomorrow. Time with Patient: Less than 30
[2018-03-14 11:46] LABS: Glucose,Whole Blood 93 mg/dL (75-99)
--- NOTE | 2018-03-14 11:55 | P.PN ---
Subjective Progress Note Date: 03/14/18 Principal diagnosis: Ileus versus small bowel obstruction Patient doing well today. Denies abdominal pain. Continue to pass flatus and had a bowel movement again yesterday. T-max 99.1. White blood cell count today 12. She has had her nasogastric tube clamped for 5 hours without nausea. Objective - Vital Signs Vital signs: Vital Signs Temp 99.0 F 03/14/18 07:00 Pulse 93 03/14/18 07:00 Resp 18 03/14/18 07:00 BP 114/75 03/14/18 07:00 Pulse Ox 97 03/14/18 07:00 Intake & Output 03/13/18 03/14/18 03/14/18 18:59 06:59 18:59 Intake Total 1011 1540 Output Total 500 50 Balance 511 1490 Weight 71.9 kg 67.4 kg Intake: Intake, IV Titration 1011 1540 Amount Amino Acid 4.25%-D10w+ 1000 Lytes*E* 1,000 ml @ 90 mls/hr IV .BY DURATION [facility] Rx#:[id number] Fat Emulsion 20% 250 ml 250 In Empty Bag 1 bag @ 21 mls/hr IV DAILY@1800 [facility] Rx#:[id number] Mvi, Adult No.4 with Vit 1011 K 10 ml Trace (Conc-1Ml/ Dose) 1 ml In Amino Acid 4.25%-D10w+Lytes*E* 1,000 ml @ 90 mls/hr IV .BY DURATION [facility] Rx#: [id number] Sodium Chloride 0.9% 1, 290 000 ml @ 120 mls/hr IV . Q8H20M [facility] Rx#:[id number] Output: Urine 500 Uretheral (Roa) 500 Oral Regurgitation 50 Other: Voiding Method Toilet # Voids 1 1 # Bowel Movements 2 - Exam Abdomen: Soft, and minimal distention, minimal incisional tenderness, incisions clean and dry - Labs CBC & Chem 7: 03/14/18 06:45 03/14/18 06:45 Labs: Abnormal Lab Results - Last 24 Hours (Table) 03/13/18 03/13/18 03/13/18 Range/Units 12:23 18:00 23:44 WBC (3.8-10.6) k/uL RBC (3.80-5.40) m/uL Neutrophils # (1.3-7.7) k/uL Sodium (137-145) mmol/L Creatinine (0.52-1.04) mg/dL Glucose (74-99) mg/dL POC Glucose (mg/dL) 121 H 112 H 118 H (75-99) mg/dL Calcium (8.4-10.2) mg/dL 03/14/18 03/14/18 03/14/18 Range/Units 05:57 06:45 06:45 WBC 12.0 H (3.8-10.6) k/uL RBC 3.53 L (3.80-5.40) m/uL Neutrophils # 10.1 H (1.3-7.7) k/uL Sodium 136 L (137-145) mmol/L Creatinine 0.45 L (0.52-1.04) mg/dL Glucose 112 H (74-99) mg/dL POC Glucose (mg/dL) 113 H (75-99) mg/dL Calcium 8.0 L (8.4-10.2) mg/dL Assessment and Plan (1) Nausea & vomiting Narrative/Plan: Remove nasogastric tube. Begin clear liquids. Ambulate. Possible discharge tomorrow. Repeat CBC tomorrow. Current Visit: Yes Status: Acute Code(s): R11.2 - NAUSEA WITH VOMITING, UNSPECIFIED SNOMED Code(s): 81648514
[2018-03-14 14:06] VITALS: BMI 24.0
[2018-03-14] MEDS: FAT EMULSION 20% 250 ML in EMPTY BAG 1 BAG IV SCH (15:13)
[2018-03-14 18:18] LABS: Glucose,Whole Blood 116 mg/dL (75-99)
[2018-03-14] MEDS: traMADol 50 MG TAB PO PRN (19:40)
[2018-03-14] MEDS: ACETAMINOPHEN TAB 325 MG TAB PO PRN (21:20)
[2018-03-15 00:14] LABS: Glucose,Whole Blood 97 mg/dL (75-99)
[2018-03-15] MEDS: INSULIN ASPART 100 UNIT/ML 1 ML 10 ML VIAL SQ SCH ×2 (00:55→05:58)
[2018-03-15] MEDS: SODIUM CHLORIDE 0.9% 1,000 ML IV SCH ×3 (04:47→20:41)
[2018-03-15 05:55] LABS: Glucose,Whole Blood 91 mg/dL (75-99)
[2018-03-15 07:24] LABS: Basophils # (A) 0.1 k/uL (0-0.2); Basophils % (A) 1 %; Eosinophils # (A) 0.2 k/uL (0-0.7); Eosinophils % (A) 1 %; HCT 33.4 % (34.0-46.0); HGB 11.1 gm/dL (11.4-16.0); Lymphocytes # (A) 0.9 k/uL (1.0-4.8); Lymphocytes % (A) 7 %; MCH 32.4 pg (25.0-35.0); MCHC 33.2 g/dL (31.0-37.0); MCV 97.7 fL (80.0-100.0); Mean Platelet Volume 6.4; Monocytes # (A) 0.6 k/uL (0-1.0); Monocytes % (A) 5 %; Neutrophils # (A) 10.2 k/uL (1.3-7.7); Neutrophils % (A) 85 %; Platelet Count 323 k/uL (150-450); RBC 3.42 m/uL (3.80-5.40); RDW 12.3 % (11.5-15.5)
[2018-03-15 07:33] LABS: Anion Gap 6 mmol/L; Blood Urea Nitrogen 11 mg/dL (7-17); Calcium 8.3 mg/dL (8.4-10.2); Carbon Dioxide 28 mmol/L (22-30); Chloride 100 mmol/L (98-107); Glucose 87 mg/dL (74-99); Potassium 4.3 mmol/L (3.5-5.1); Sodium 134 mmol/L (137-145)
[2018-03-15 07:53] VITALS: RESP 16
[2018-03-15] MEDS: 1: MVI, ADULT NO.4 WITH VIT K 10 ML, TRACE (CONC-1ML/DOSE) 1 ML in AMINO ACID 4.25%-D10W IV SCH ×3 (08:35)
[2018-03-15] MEDS: PANTOPRAZOLE 40 MG/10 ML VIAL IV SCH (09:28)
[2018-03-15] MEDS: HEPARIN SODIUM,PORCINE 5,000 UNIT/ML 1 ML VIAL SQ SCH ×3 (09:54→23:17)
--- NOTE | 2018-03-15 09:57 | P.DS ---
Providers Date of admission: 03/06/18 20:33 Expected date of discharge: 03/15/18 Attending physician: Elaine Raymond Consults: 03/10/18 12:25 Consult Physician Urgent Consulting Provider: Hi Good Reason/Comments: Ongoing ileus status post vaginal hysterectomy 1 week ago today Do you want consulting provider notified?: Already Contacted Primary care physician: [facility] Course: This is a 47-year-old white female, status post vaginal hysterectomy on 2018. Patient was discharged home on postoperative day #1 in good condition. She repeat presented to the emergency room on 03/06/2018 with incessant nausea and vomiting. Computed tomography scan of the abdomen revealed dilated small bowel loops, ileus versus small bowel obstruction. Patient was admitted for conservative management. Please see dictated history and physical for details. After several days of nothing by mouth status and medical support, decision was made to proceed with a small bowel series. General surgery was consult, Dr. Good in attendance and evaluated patient. Results of the series were consistent with likely small bowel obstruction, and decision was made to proceed with diagnostic laparoscopy. Patient underwent diagnostic laparoscopy at which time a loop of small bowel was noted to be behind a Vicryl stitch. This was at the right aspect of the vaginal cuff. The stitch was released, the blunt ends were secured with small surgical clips. Immediately the bowel was released and free flowing. There was no evidence of necrosis or ischemia. There was no bleeding. NG tube was placed intraoperatively and 1000 mL of fluid returned. Please see dictated operative note for details. Postoperatively the patient has done well. This morning she has active bowel sounds, the 3 small abdominal incisions are clean and dry. Patient is tolerating regular food, she has no residual nausea or vomiting. Labs this morning reveal hemoglobin 11.1, WBCs 12.0. Patient had a low-grade temp last night of 99.8, her temperature this morning is 98.5. The lungs are clear in all ahn. There is no peripheral edema. The abdomen is soft and nontender, no rebound or guarding. No CVA tenderness. No vaginal bleeding. Patient is being discharged home today in good condition, pending evaluation and clearance by the general surgical team. She will follow-up in the office with me in 1 week. I have given her my private cell phone number and asked her to call with any difficulties or issues, with any questions or concerns. She will maintain a low fiber diet over the next 2 weeks. She will use over-the- counter Advil or Aleve as needed for pain. I've asked her to call me with any fevers shakes or chills, any vaginal bleeding, any issues with nausea vomiting, any questions or concerns. No driving for 2 weeks. No intercourse. Patient Condition at Discharge: Good Plan - Discharge Summary Discharge Rx Participant: No New Discharge Prescriptions: No Action Loratadine-Pseudoeph 10-240 mg [Claritin-D 24 Hr] 1 tab PO DAILY buPROPion HCL [Wellbutrin XL] 300 mg PO DAILY Cholecalciferol [Vitamin D3] 1,000 unit PO DAILY Multivitamin,Therapeutic [Thera] 1 tab PO DAILY Discharge Medication List Loratadine-Pseudoeph 10-240 mg [Claritin-D 24 Hr] 1 tab PO DAILY 02/26/18 [ History] Cholecalciferol [Vitamin D3] 1,000 unit PO DAILY 03/06/18 [History] Multivitamin,Therapeutic [Thera] 1 tab PO DAILY 03/06/18 [History] buPROPion HCL [Wellbutrin XL] 300 mg PO DAILY 03/06/18 [History] Follow up Appointment(s)/Referral(s): Elaine Raymond MD [STAFF PHYSICIAN] - 1 Week Tavo Singh MD [Primary Care Provider] - 1-2 days Patient Instructions/Handouts: Lysis of Abdominal Adhesions (DC)
[2018-03-15 12:10] LABS: Glucose,Whole Blood 81 mg/dL (75-99)
[2018-03-15] MEDS: traMADol 50 MG TAB PO PRN (15:20)
--- NOTE | 2018-03-15 15:44 | P.PN ---
Subjective Progress Note Date: 03/15/18 CHIEF COMPLAINT: Status post lysis of adhesions HISTORY OF PRESENT ILLNESS: The patient is a 47 year old female who is status post descending lysis of adhesions for bowel obstruction, 03/12/2018, postop day 3. Earlier she was doing well and now has acute gas bloat, abdominal discomfort. She has history of iatrogenic bowel obstruction. is at bedside. "I do not feel well." She developed a temp of 99.9 this afternoon although she was set for discharge. She is no longer passing flatus. PHYSICAL EXAM: VITAL SIGNS: Reviewed GENERAL: Well-developed in no acute distress. HEENT: No sclera icterus. Extraocular movements grossly intact. Moist buccal mucosa. Head is atraumatic, normocephalic. Hears conversational speech. No nasal drainage. NECK: Supple without lymphadenopathy. CHEST: Non-labored respirations and equal bilateral excursions. CARDIOVASCULAR: Regular rate with regular rhythm. ABDOMEN: Mild distention. No peritonitis. Incisions are clean, dry and intact. MUSCULOSKELETAL: No clubbing, cyanosis or edema. NEUROLOGIC: No focal or lateralizing signs. Cranial nerves II through XII grossly intact. PSYCH: Alert and oriented to person, place and time. SKIN: Well perfused. Good skin turgor. LABS: Reviewed ASSESSMENT: 1. Small bowel obstruction PLAN: 1. Simethicone drops advised. 2. May benefit from abdominal xrays for change in clinical status. 3. Discharge on hold for change in clinical status. ADDENDUM: I personally spoke with Dr. Raymond recommended hold discharge Objective - Vital Signs Vital signs: Vital Signs Temp 99.7 F H 03/15/18 15:00 Pulse 96 03/15/18 15:00 Resp 16 03/15/18 15:00 BP 99/61 03/15/18 15:00 Pulse Ox 100 03/15/18 15:00 Intake & Output 03/14/18 03/15/18 03/15/18 18:59 06:59 18:59 Intake Total 725 Balance 725 Weight 67.4 kg 66.6 kg Intake: Oral 725 Other: Voiding Method Toilet # Voids 1 # Bowel Movements 1 - Labs CBC & Chem 7: 03/16/18 06:37 03/16/18 06:37 Labs: Abnormal Lab Results - Last 24 Hours (Table) 1203/15/18 03/15/18 Range/Units 18:06 06:34 06:34 WBC 12.0 H (3.8-10.6) k/uL RBC 3.42 L (3.80-5.40) m/uL Hgb 11.1 L (11.4-16.0) gm/dL Hct 33.4 L (34.0-46.0) % Neutrophils # 10.2 H (1.3-7.7) k/uL Lymphocytes # 0.9 L (1.0-4.8) k/uL Sodium 134 L (137-145) mmol/L POC Glucose (mg/dL) 116 H (75-99) mg/dL Calcium 8.3 L (8.4-10.2) mg/dL - Imaging and Cardiology Abdominal x-ray: image reviewed (Diffuse gaseous distention of small bowel ileus versus small bowel obstruction)
--- NOTE | 2018-03-15 16:20 | XR ---
EXAMINATION TYPE: XR abdomen 2V DATE OF EXAM: 03/15/2018 COMPARISON: 03/10/2018 HISTORY: Ileus abdominal pain TECHNIQUE: 2 views supine and upright FINDINGS: There are multiple dilated air and fluid-filled loops of small bowel throughout the abdomen . There are clips from cholecystectomy. I see no sign of free air. There is some large bowel gas. IMPRESSION: Dilated small bowel consistent with mechanical small bowel obstruction probably not sanchez ed compared to 03/10/2018. No free air.
[2018-03-15] MEDS: SIMETHICONE 40 MG/0.6 ML DROPS 2,000 MG/30 ML BOTTLE PO SCH ×2 (16:30→23:16)
[2018-03-15] MEDS: ACETAMINOPHEN TAB 325 MG TAB PO PRN (19:21)
[2018-03-16] MEDS: 1: MVI, ADULT NO.4 WITH VIT K 10 ML, TRACE (CONC-1ML/DOSE) 1 ML in AMINO ACID 4.25%-D10W IV SCH ×3 (04:37)
[2018-03-16] MEDS: SODIUM CHLORIDE 0.9% 1,000 ML IV SCH (05:24)
[2018-03-16 07:04] LABS: Basophils % (A) 0 %; Eosinophils # (A) 0.2 k/uL (0-0.7); Eosinophils % (A) 2 %; HGB 11.5 gm/dL (11.4-16.0); Lymphocytes # (A) 0.8 k/uL (1.0-4.8); Lymphocytes % (A) 8 %; MCH 32.6 pg (25.0-35.0); MCHC 33.7 g/dL (31.0-37.0); MCV 96.7 fL (80.0-100.0); Mean Platelet Volume 6.1; Monocytes # (A) 0.6 k/uL (0-1.0); Monocytes % (A) 6 %; Neutrophils # (A) 8.5 k/uL (1.3-7.7); Neutrophils % (A) 82 %; Platelet Count 363 k/uL (150-450); RBC 3.51 m/uL (3.80-5.40); RDW 12.1 % (11.5-15.5); WBC 10.3 k/uL (3.8-10.6)
[2018-03-16 07:22] LABS: Anion Gap 9 mmol/L; Blood Urea Nitrogen 13 mg/dL (7-17); Calcium 8.7 mg/dL (8.4-10.2); Carbon Dioxide 27 mmol/L (22-30); Chloride 99 mmol/L (98-107); Glucose 76 mg/dL (74-99); Magnesium 1.8 mg/dL (1.6-2.3); Phosphorus 4.6 mg/dL (2.5-4.5); Sodium 135 mmol/L (137-145)
[2018-03-16] MEDS: SIMETHICONE 40 MG/0.6 ML DROPS 2,000 MG/30 ML BOTTLE PO SCH ×2 (09:59→13:52)
[2018-03-16] MEDS: PANTOPRAZOLE 40 MG/10 ML VIAL IV SCH (09:59)
[2018-03-16] MEDS: HEPARIN SODIUM,PORCINE 5,000 UNIT/ML 1 ML VIAL SQ SCH (09:59)
--- NOTE | 2018-03-16 10:00 | P.PN ---
Subjective Progress Note Date: 03/16/18 Principal diagnosis: Small bowel ileus, dramatic improvement this morning. Patient reports passage of significant gas, she feels hungry. Has had minimal solid food. No pain. Back pain completely resolved. Objective - Vital Signs Vital signs: Vital Signs Temp 99 F 03/16/18 07:29 Pulse 96 03/16/18 07:29 Resp 16 03/16/18 07:29 BP 123/60 03/16/18 07:29 Pulse Ox 96 03/16/18 07:29 Intake & Output 03/15/18 03/16/18 03/16/18 18:59 06:59 18:59 Intake Total 725 200 Balance 725 200 Intake: Oral 725 200 - Exam Left forearm with superficial erythema and tenderness,, consistent with phlebitis from previous IV TPN site. - Constitutional General appearance: Present: average body habitus, cooperative - EENT Eyes: Present: PERRLA ENT: Present: hearing grossly normal - Neck Neck: Present: normal ROM - Respiratory Respiratory: bilateral: CTA - Cardiovascular Rhythm: regular - Gastrointestinal Gastrointestinal Comment(s): Abdomen softly distended, nontender. Active bowel sounds. No rebound or guarding. No CVA tenderness. Small incisions clean and dry, well approximated. General gastrointestinal: Present: normal bowel sounds - Neurologic Neurologic: Present: CNII-XII intact - Musculoskeletal Musculoskeletal: Present: gait normal, strength equal bilaterally - Psychiatric Psychiatric: Present: A&O x's 3, appropriate affect, intact judgment & insight - Labs CBC & Chem 7: 03/16/18 06:37 03/16/18 06:37 Labs: Abnormal Lab Results - Last 24 Hours (Table) 03/16/18 03/16/18 Range/Units 06:37 06:37 RBC 3.51 L (3.80-5.40) m/uL Neutrophils # 8.5 H (1.3-7.7) k/uL Lymphocytes # 0.8 L (1.0-4.8) k/uL Sodium 135 L (137-145) mmol/L Phosphorus 4.6 H (2.5-4.5) mg/dL Assessment and Plan Assessment: Postoperative ileus, resolving. Plan: Slow dietary advancement. Patient anxious for discharge home. Consider discharge later this afternoon versus tomorrow pending Dr. Hurst's assessment. Time with Patient: Greater than 30
--- NOTE | 2018-03-16 13:08 | P.PN ---
Subjective Progress Note Date: 03/16/18 CHIEF COMPLAINT: Status post lysis of adhesions HISTORY OF PRESENT ILLNESS: The patient is a 47 year old female who is status post descending lysis of adhesions for bowel obstruction, 03/12/2018, postop day 4. After adjustment of her medications including simethicone drops for gas , she started passing flatus. Abdominal pain resolved. She is feeling well. She tolerated breakfast this morning. For lunch, she is about to have meatloaf. She feels much better. White count is now normal. PHYSICAL EXAM: VITAL SIGNS: Reviewed GENERAL: Well-developed in no acute distress. HEENT: No sclera icterus. Extraocular movements grossly intact. Moist buccal mucosa. Head is atraumatic, normocephalic. Hears conversational speech. No nasal drainage. NECK: Supple without lymphadenopathy. CHEST: Non-labored respirations and equal bilateral excursions. CARDIOVASCULAR: Regular rate with regular rhythm. ABDOMEN: Nontender. Nondistended. MUSCULOSKELETAL: No clubbing, cyanosis or edema. NEUROLOGIC: No focal or lateralizing signs. Cranial nerves II through XII grossly intact. PSYCH: Alert and oriented to person, place and time. SKIN: Well perfused. Good skin turgor. LABS: Reviewed ASSESSMENT: 1. Small bowel obstruction PLAN: 1. Diet as tolerated. 2. May discharge home 2 hours after tolerating lunch. Objective - Vital Signs Vital signs: Vital Signs Temp 99 F 03/16/18 07:29 Pulse 96 03/16/18 07:29 Resp 16 03/16/18 07:29 BP 123/60 03/16/18 07:29 Pulse Ox 96 03/16/18 07:29 Intake & Output 03/15/18 03/16/18 03/16/18 18:59 06:59 18:59 Intake Total 725 200 Balance 725 200 Intake: Oral 725 200 - Labs CBC & Chem 7: 03/16/18 06:37 03/16/18 06:37 Labs: Abnormal Lab Results - Last 24 Hours (Table) 03/16/18 03/16/18 Range/Units 06:37 06:37 RBC 3.51 L (3.80-5.40) m/uL Neutrophils # 8.5 H (1.3-7.7) k/uL Lymphocytes # 0.8 L (1.0-4.8) k/uL Sodium 135 L (137-145) mmol/L Phosphorus 4.6 H (2.5-4.5) mg/dL
[2018-03-16 13:54] VITALS: BP 100/62; PULSE 79; TEMP 98.6
--- NOTE | 2018-03-16 16:03 | P.DS ---
Providers Date of admission: 03/06/18 20:33 Expected date of discharge: 03/16/18 Attending physician: Elaine Raymond Consults: 03/10/18 12:25 Consult Physician Urgent Consulting Provider: Hi Good Consult Reason/Comments: Ongoing ileus status post vaginal hysterectomy 1 week ago today Do you want consulting provider notified?: Already Contacted Primary care physician: [facility] Course: This is an addendum to the previously dictated discharge summary dated yesterday. Yesterday as the day progressed, patient became uncomfortable with abdominal cramping and back pain. She denied nausea or vomiting, but was reluctant to be discharged home. Decision was made to observe the patient for an additional 24 hours and the discharge was therefore postponed. Since that time the patient has done very well. Today she is eating, having consumed meatloaf and potatoes for lunch. There is minimal soft abdominal distention, active bowel sounds. No CVA tenderness. No issues with extremities. White count this morning 10.5. Patient has a slight erythematous region in the left forearm from the previous IV site that is minimally tender, consistent with subcutaneous infiltration. Otherwise she is without complaints and is feeling in very good condition for discharge home. She will follow-up in the office with me in 1 week. Strict dietary recommendations are reviewed. I have given her my private cell phone number and asked her to call me with any issues or difficulties. Patient Condition at Discharge: Good Plan - Discharge Summary Discharge Rx Participant: No New Discharge Prescriptions: New Simethicone 40 mg/0.6 ml Drops [Mylicon Drops] 40 mg PO Q6HR PRN #30 ml PRN Reason: Abdominal Distention No Action Loratadine-Pseudoeph 10-240 mg [Claritin-D 24 Hr] 1 tab PO DAILY buPROPion HCL [Wellbutrin XL] 300 mg PO DAILY Cholecalciferol [Vitamin D3] 1,000 unit PO DAILY Multivitamin,Therapeutic [Thera] 1 tab PO DAILY Discharge Medication List Loratadine-Pseudoeph 10-240 mg [Claritin-D 24 Hr] 1 tab PO DAILY 02/26/18 [ History] Cholecalciferol [Vitamin D3] 1,000 unit PO DAILY 03/06/18 [History] Multivitamin,Therapeutic [Thera] 1 tab PO DAILY 03/06/18 [History] buPROPion HCL [Wellbutrin XL] 300 mg PO DAILY 03/06/18 [History] Simethicone 40 mg/0.6 ml Drops [Mylicon Drops] 40 mg PO Q6HR PRN #30 ml [Rx] Follow up Appointment(s)/Referral(s): Hi Good MD [Medical Doctor] - 2 Weeks Elaine Raymond MD [STAFF PHYSICIAN] - 1 Week (Call office tomorrow ) Tavo Singh MD [Primary Care Provider] - 1-2 days Patient Instructions/Handouts: Lysis of Abdominal Adhesions (DC)
== END 2018-03-16 15:22 | disposition home or self-care (01) | DRG 337 ==
LOC: EC 16:59 → 4SSUR 20:33
PROVIDERS: ADMIT Obstetrics & Gynecology; ATTEND Obstetrics & Gynecology
PROC: 0DNW4ZZ Release Peritoneum, Percutaneous Endoscopic Approach (ICD-10-PCS; principal; 2018-03-12 12:30)
DX: K91.30 Postprocedural intestinal obstruction, unspecified as to partial versus complete (principal); K21.9 Gastro-esophageal reflux disease without esophagitis; Z79.899 Other long term (current) drug therapy; Z88.5 Allergy status to narcotic agent; Z90.49 Acquired absence of other specified parts of digestive tract; Z90.710 Acquired absence of both cervix and uterus; Z82.3 Family history of stroke; Z82.49 Family history of ischemic heart disease and other diseases of the circulatory system; Z82.5 Family history of asthma and other chronic lower respiratory diseases; Z83.3 Family history of diabetes mellitus; Y83.8 Other surgical procedures as the cause of abnormal reaction of the patient, or of later complication, without mention of misadventure at the time of the procedure
CPT/HCPCS: 36415; 74019; 74021; 74177; 74250; 80048; 80053; 81001; 82150; 82330; 83036; 83690; 83735; 84100; 84478; 85025; 85027; 85610; 85730; 96361; 96374; 96375; 99285

== ENCOUNTER → 2019-12-15 | Outpatient (CLI) | payer BC ==
--- NOTE | 2019-12-15 10:56 | MM ---
Reason for exam: screening (asymptomatic). Last mammogram was performed 1 year and 11 months ago. History: Family history of breast cancer in aunt at age 55. Took hormonal contraceptives for 6 years. Physical Findings: A clinical breast exam by your physician is recommended on an annual basis and results should be correlated with mammographic findings. MG Screening Mammo w CAD Bilateral CC and MLO view(s) were taken. Prior study comparison: January 10, 2018, bilateral MG screening mammo w CAD. December 14, 2016, bilateral MG screening mammo w CAD. The breast tissue is heterogeneously dense. This may lower the sensitivity of mammography. Benign appearing bilateral calcifications. No significant changes when compared with prior studies. ASSESSMENT: Benign, BI-RAD 2 RECOMMENDATION: Routine screening mammogram of both breasts in 1 year.
== END | disposition home or self-care (01) ==
LOC: RADMAMWWP 07:00
PROVIDERS: ATTEND Obstetrics & Gynecology
DX: Z12.31 Encounter for screening mammogram for malignant neoplasm of breast (principal); Z80.3 Family history of malignant neoplasm of breast
CPT/HCPCS: 77067

== ENCOUNTER → 2021-04-18 | Outpatient (CLI) | payer BC ==
--- NOTE | 2021-04-18 10:29 | MM ---
Reason for exam: screening (asymptomatic). Last mammogram was performed 1 year and 4 months ago. History: Family history of breast cancer in maternal grandmother, breast cancer in paternal grandmother, and breast cancer in paternal aunt at age 55. Took hormonal contraceptives for 6 years. Physical Findings: A clinical breast exam by your physician is recommended on an annual basis and results should be correlated with mammographic findings. MG Screening Mammo w CAD Bilateral CC and MLO view(s) were taken. Prior study comparison: December 15, 2019, bilateral MG screening mammo w CAD. January 10, 2018, bilateral MG screening mammo w CAD. The breast tissue is heterogeneously dense. This may lower the sensitivity of mammography. There is no discrete abnormality. No significant changes when compared with prior studies. ASSESSMENT: Negative, BI-RAD 1 RECOMMENDATION: Routine screening mammogram of both breasts in 1 year.
== END | disposition home or self-care (01) ==
LOC: RADMAMWWP 07:02
PROVIDERS: ATTEND Obstetrics & Gynecology
DX: Z12.31 Encounter for screening mammogram for malignant neoplasm of breast (principal); Z80.3 Family history of malignant neoplasm of breast
CPT/HCPCS: 77067

== ENCOUNTER → 2023-08-23 | Outpatient (CLI) | payer BC ==
--- NOTE | 2023-08-23 18:55 | MM ---
Reason for Exam: Screening (asymptomatic). Last mammogram was performed 1 year(s) and 4 month(s) ago. Patient History: Menarche at age 18. First Full-Term at age 32. Late child-bearing (after 30). Hysterectomy at age 48. Premenopausal. Patient used Hormonal Contraceptives for 6 years. Paternal grandmother had breast cancer, age 59. Maternal grandmother had breast cancer, age 65. Paternal aunt had breast cancer, age 55. Risk Values: Ivon 5 year model risk: 1.3%. NCI Lifetime model risk: 11.0%. Prior Study Comparison: 12/15/2019 Bilateral Screening Mammogram, [facility]. 04/18/2021 Bilateral Screening Mammogram, [facility]. 05/02/2022 Bilateral MG screening mammo w CAD, [facility]. Tissue Density: The breasts are heterogeneously dense, which may obscure small masses. Findings: Analyzed By CAD. There is no suspicious group of microcalcifications or new suspicious mass in either breast. Overall Assessment: Negative, BI-RAD 1 Management: Screening Mammogram of both breasts in 1 year. . Patient should continue monthly self-breast exams. A clinical breast exam by your physician is recommended on an annual basis. This exam should not preclude additional follow-up of suspicious palpable abnormalities. Note on Ivon scores and lifetime risk: 1. A Ivon score greater than 3% is considered moderate risk. If this is the case, consider specialist referral to assess eligibility for a risk reducing agent. 2. If overall lifetime risk for the development of breast cancer is 20% or higher, the patient may qualify for future screening with alternating mammogram and breast MRI. Electronically signed and approved by: Jacek Espinal M.D. Radiologist
== END | disposition home or self-care (01) ==
LOC: RADMAMWWP 08:47
PROVIDERS: ATTEND Family Medicine
DX: Z12.31 Encounter for screening mammogram for malignant neoplasm of breast (principal); Z80.3 Family history of malignant neoplasm of breast
CPT/HCPCS: 77067

== ENCOUNTER → 2024-08-26 | Outpatient (CLI) | payer BC ==
--- NOTE | 2024-08-26 08:37 | MM ---
Reason for Exam: Screening (asymptomatic). Last screening mammogram was performed 12 month(s) ago. Patient History: Menarche at age 18. First Full-Term at age 32. Late child-bearing (after 30). Hysterectomy at age 48. Premenopausal. Patient used Hormonal Contraceptives for 6 years. Paternal grandmother had breast cancer, age 59. Maternal grandmother had breast cancer, age 65. Paternal aunt had breast cancer, age 55. Risk Values: Ivon 5 year model risk: 1.3%. NCI Lifetime model risk: 10.8%. Prior Study Comparison: 04/18/2021 Bilateral Screening Mammogram, [facility]. 05/02/2022 Bilateral MG screening mammo w CAD, [facility]. 08/23/2023 Bilateral MG screening mammo w CAD, [facility]. Tissue Density: The breasts are heterogeneously dense, which may obscure small masses. Findings: Analyzed By CAD. There is no suspicious group of microcalcifications or new suspicious mass in either breast. Overall Assessment: Negative, BI-RAD 1 Management: Screening Mammogram of both breasts in 1 year. . Patient should continue monthly self-breast exams. A clinical breast exam by your physician is recommended on an annual basis. This exam should not preclude additional follow-up of suspicious palpable abnormalities. Note on Ivon scores and lifetime risk: 1. A Ivon score greater than 3% is considered moderate risk. If this is the case, consider specialist referral to assess eligibility for a risk reducing agent. 2. If overall lifetime risk for the development of breast cancer is 20% or higher, the patient may qualify for future screening with alternating mammogram and breast MRI. [facility], , 08/26/2024 8:34 AM. Electronically signed and approved by: Corey Pool M.D.
== END | disposition home or self-care (01) ==
LOC: RADMAMWWP 07:49
PROVIDERS: ATTEND Student in an Organized Health Care Education/Training Program
DX: Z12.31 Encounter for screening mammogram for malignant neoplasm of breast (principal); R92.333 Mammographic heterogeneous density, bilateral breasts; Z92.0 Personal history of contraception; Z80.3 Family history of malignant neoplasm of breast
CPT/HCPCS: 77063; 77067